=== PATIENT | female | born 1960 | race Caucasian/White ===

== ENCOUNTER 2021-07-10 01:41 | Emergency (ER) | payer OTHER, MEDICAID, SELFPAY ==
[2021-07-10 01:58] VITALS: BP 182/111; PULSE 78; RESP 20; TEMP 36.3; O2SAT 98; BMI 39.9
--- NOTE | 2021-07-10 02:06 | CTR_ITS ---
PROCEDURE INFORMATION: Exam: CT Abdomen And Pelvis With Contrast Exam date and time: 07/10/2021 3:40 AM Age: 61 years old Clinical indication: Abdominal pain; Localized; Right lower quadrant (rlq); Additional info: Abd pain TECHNIQUE: Imaging protocol: Computed tomography of the abdomen and pelvis with contrast. Radiation optimization: All CT scans at this facility use at least one of these dose optimization techniques: automated exposure control; mA and/or kV adjustment per patient size (includes targeted exams where dose is matched to clinical indication); or iterative reconstruction. Contrast material: OMNI 300; Contrast volume: 95 ml; Contrast route: INTRAVENOUS (IV); COMPARISON: No relevant prior studies available. RADIATION DOSE METRICS: Total DLP (mGy-cm): 1822.12 FINDINGS: Lungs: The visualized lung bases demonstrate no focal airspace opacification or pleural effusion. Heart: The visualized heart is within normal limits for size. There is no evidence of pericardial abnormality. Diaphragm: Large hiatal hernia. Liver: The liver is normal in size and contour. Gallbladder and bile ducts: The gallbladder is distended with normal wall thickness and does not demonstrate calcified gallstones. No intra- or extra-hepatic biliary ductal dilatation. Pancreas: The pancreas appears normal. Spleen: The spleen appears normal. Adrenal glands: The adrenals appear normal. Kidneys and ureters: Nonobstructing left-sided renal nephrolithiasis the largest of which measures up to approximately 4 mm. Severe right-sided hydronephrosis. Mild perinephric fat stranding. Severe dilatation of the right renal sinus. Abrupt tapering to normal ureteral diameter at the right ureteropelvic junction. No definitive stone identified at the right ureteropelvic junction. The remainder of the distal right ureter is not well visualized. Stomach and bowel: The stomach is appropriately distended and without wall abnormalities. The small bowel loops are not abnormally dilated. Colonic diverticulosis without signs of acute diverticulitis. Appendix: The appendix appears normal. Intraperitoneal space: No ascites or significant fluid collection. Vasculature: The aorta is nonaneurysmal. The IVC appears normal. Lymph nodes: There are no enlarged lymph nodes. Urinary bladder: The bladder is distended and demonstrates no focal contour abnormality. Reproductive: The uterus appears normal. Bones/joints: Right renal atrophy and cortical thinning noted. Fluid density cyst along the superior pole of the right kidney. Soft tissues: Unremarkable. CT/CT abdomen pelvis w con* [id number] IMPRESSION: 1. Severe right-sided hydronephrosis with abrupt tapering to normal ureteral diameter at the right ureteropelvic junction. No definitive stones identified. Renal cortical atrophy and thinning with mild perinephric fat stranding. Recommend follow-up urological evaluation. 2. Nonobstructing left-sided nephrolithiasis. 3. Large hiatal hernia. 4. Colonic diverticulosis without signs of acute diverticulitis.
--- NOTE | 2021-07-10 02:07 | W.ED.ABDPA2 ---
HPI - Abdominal Pain General: Chief Complaint: Abdominal Pain Stated Complaint: abd pain Time Seen by Provider: 07/10/21 01:46 Source: patient Mode of arrival: ambulatory Limitations: no limitations History of Present Illness: 61-year-old female states she been having right lower quadrant abdominal pain and flank pain over the last day. States pain is very sharp in nature worse with movement and palpation. She states she has had a kidney stone in the past but this does not feel quite similar no abdominal surgeries in the past she has had nausea vomiting denies any fevers. Denies any radiation of her pain Associated Symptoms: Reports nausea and vomiting; Denies chills, dysuria and fever(s) Review of Systems Const: Denies: fever(s), chills, body aches or change in appetite Eyes: Denies: blurry vision or eye discomfort ENMT: Denies: throat pain or dental pain Card: Denies: chest pain Resp: Denies: dyspnea GI: Reports: abdominal pain, nausea and vomiting : Denies: dysuria Musc: Denies: neck pain or back pain Skin/Breast: Denies: rash Neuro: Denies: headache(s) Psych: Denies: depression Carlos/Lymph: Denies: easy bruising All/Imm: Denies: urticaria PFSH ED PFSH: Medical History No pertinent past medical history Social History (Updated 07/10/21 @ 02:08 by Chuckie Weiss MD) Substance/Drug Use: never Physical Exam Const: COMMON NORMALS: no acute distress, patient oriented x3 and healthy appearing HENMT: COMMON NORMALS: normocephalic and atraumatic HEAD & SCALP: normocephalic and atraumatic Eye: COMMON NORMALS: Equal, round and reactive pupils present and EOMs intact bilaterally PUPIL: Yes Equal, round and reactive pupils present Neck/C-Spine: COMMON NORMALS: full ROM and supple Chest: COMMONS NORMALS: normal inspection of the chest and normal palpation of entire chest wall Resp: COMMON NORMALS: normal respiratory effort, No retractions, No use of accessory muscles and clear to auscultation bilaterally AUSCULTATION: clear to auscultation bilaterally Cardio: COMMON NORMALS: regular rate, regular rhythm and No murmurs present (Cardio) RATE: regular rate RHYTHM: regular rhythm GI: COMMON NORMALS: Normal to inspection, nondistended, normoactive bowel sounds present, Soft to palpation and no masses PALPATION: Yes Soft to palpation and Yes Tenderness to palpation present (GI) Details: RLQ Extremity: COMMON NORMALS: normal to inspection and full ROM Neuro: COMMON NORMALS: patient oriented x3, moves all extremities and no focal motor deficits Psych: COMMON NORMALS: mental status grossly normal, Normal thought process present and cooperative THOUGHT PROCESS: Normal thought process present Skin: COMMON NORMALS: no rashes or lesions noted and no wounds GENERAL SKIN EXAM: no rashes or lesions noted Course Vital Signs: Vital signs: Vital Signs Temperature 97.4 F L 07/10/21 01:58 Pulse Rate 83 07/10/21 02:33 Respiratory Rate 16 07/10/21 04:35 Blood Pressure 171/91 07/10/21 02:33 Pulse Oximetry 96 07/10/21 04:35 MDM - Abdominal Pain Medical Decision Making Patient presents here with abdominal pain she does have hydronephrosis of the right kidney no sign of acute kidney stone patient's kidney function here is normal does have a leukocytosis but no signs of acute surgical abdomen her pain is much improved exam at discharge is benign we will get her follow-up with urology she is to return if worsening she understands agrees to plan. Lab Data : 07/10/21 02:41 07/10/21 02:41 Labs/Radiology: Radiology Impressions Abdomen/Pelvis CT 07/10/21 02:06 IMPRESSION: 1. Severe right-sided hydronephrosis with abrupt tapering to normal ureteral diameter at the right ureteropelvic junction. No definitive stones identified. Renal cortical atrophy and thinning with mild perinephric fat stranding. Recommend follow-up urological evaluation. 2. Nonobstructing left-sided nephrolithiasis. 3. Large hiatal hernia. 4. Colonic diverticulosis without signs of acute diverticulitis. Laboratory Results WBC 17.5 10^3/uL (4.0-10.0) H 07/10/21 02:41 RBC 4.39 10^6/uL (4.1-5.3) 07/10/21 02:41 Hgb 8.0 g/dL (11.5-15.3) L 07/10/21 02:41 Hct 28.1 % (37.0-47.0) L 07/10/21 02:41 MCV 64.0 fl (81-99) L 07/10/21 02:41 MCH 18.2 pg (28.0-34.0) L 07/10/21 02:41 MCHC 28.5 g/dL (30.0-36.0) L 07/10/21 02:41 RDW 19.0 % (12.1-15.1) H 07/10/21 02:41 Plt Count 436 10^3/cmm (130-400) H 07/10/21 02:41 MPV 10.3 fL (7.4-10.4) 07/10/21 02:41 Neut % (Auto) 91.4 % 07/10/21 02:41 Lymph % (Auto) 4.1 % 07/10/21 02:41 [place] % (Auto) 3.3 % 07/10/21 02:41 Eos % (Auto) 0.1 % 07/10/21 02:41 Baso % (Auto) 0.6 % 07/10/21 02:41 Neut # (Auto) 16.00 10^3/uL (1.8-7.7) H 07/10/21 02:41 Lymph # (Auto) 0.7 10^3/uL (0.8-4.8) L 07/10/21 02:41 [place] # (Auto) 0.6 10^3/uL (0.2-0.9) 07/10/21 02:41 Eos # (Auto) 0.0 10^3/uL (0.0-0.8) 07/10/21 02:41 Baso # (Auto) 0.1 10^3/uL (0.0-0.1) 07/10/21 02:41 Nucleated RBC % (auto) 0 % 07/10/21 02:41 Nucleated RBCs # 0.0 /100WBC 07/10/21 02:41 Sodium 138 mmol/L (136-145) 07/10/21 02:41 Potassium 4.3 mmol/L (3.5-5.1) 07/10/21 02:41 Chloride 103 mmol/L (98-107) 07/10/21 02:41 Carbon Dioxide 21 mmol/L (22-29) L 07/10/21 02:41 Anion Gap 18.3 (5-19) 07/10/21 02:41 BUN 18 mg/dL (8-23) 07/10/21 02:41 Creatinine 1.0 mg/dL (0.5-0.9) H 07/10/21 02:41 GFR Calculation 56.6 mL/min (90-130) L 07/10/21 02:41 Glucose 164 mg/dL (65-115) H 07/10/21 02:41 Calculated Osmolality 292 mOsm/kg (285-295) 07/10/21 02:41 Calcium 9.9 mg/dL (8.5-10.5) 07/10/21 02:41 Total Bilirubin 0.3 mg/dL (0.15-1.2) 07/10/21 02:41 AST 15 U/L (0-32) 07/10/21 02:41 ALT 14 U/L (0-33) 07/10/21 02:41 Alkaline Phosphatase 133 IU/L (35-105) H 07/10/21 02:41 Total Protein 7.6 g/dL (6.6-8.7) 07/10/21 02:41 Albumin 4.6 g/dL (3.5-5.2) 07/10/21 02:41 Globulin 3.0 g/dL (1.3-4.6) 07/10/21 02:41 Lipase 25 U/L (13-60) 07/10/21 02:41 Urine Color Yellow (Yellow) 07/10/21 04:15 Urine Appearance Clear (CLEAR) 07/10/21 04:15 Urine pH 5 (5-7) 07/10/21 04:15 Ur Specific [place] 1.010 (1.005-1.030) 07/10/21 04:15 Urine Protein Neg (Negative) 07/10/21 04:15 Urine Glucose (UA) Norm (Normal) 07/10/21 04:15 Urine Ketones Negative (Negative) 07/10/21 04:15 Urine Blood Neg (Negative) 07/10/21 04:15 Urine Nitrate Negative (Negative) 07/10/21 04:15 Urine Bilirubin Neg (Negative) 07/10/21 04:15 Urine Urobilinogen Norm mg/dL (Negative) 07/10/21 04:15 Ur Leukocyte Esterase Negative (Negative) 07/10/21 04:15 Discharge Plan Discharge Patient Disposition: Home Clinical Impression: Abdominal pain Qualifiers: Abdominal location: generalized Qualified Code(s): R10.84 - Generalized abdominal pain Hydronephrosis Qualifiers: Hydronephrosis type: unspecified Qualified Code(s): N13.30 - Unspecified hydronephrosis Prescriptions: New hydrocodone-acetaminophen 5-325 mg tablet 1 tab PO Q6H PRN (Reason: pain) Qty: 14 0RF ondansetron 4 mg tablet,disintegrating 4 mg PO Q6H PRN (Reason: nausea and vomiting) Qty: 14 0RF Discharge Orders: Discharge ED (Routine); Ordered 07/10/21 Ordered By: Chuckie Weiss Referrals: Edward Perez MD [Physician] - 1-3 days Discharge Diet: Advance as tolerated Discharge Activity: Resume usual activity Patient Instructions: Abdominal Pain (ED), Opioid Safety Coding Level of Care Code ED [employer] Foreign Language Teacher for Chg Fwd Exam Comprehensive
[2021-07-10] MEDS: ondansetron 2 mg/ML SDV 2 mL 4 MG IVP (02:31)
[2021-07-10 02:32] VITALS: RESP 16; O2SAT 95
[2021-07-10] MEDS: morphine 4 mg/mL SDV 1 mL IVP (02:32)
[2021-07-10 02:33] VITALS: BP 171/91; PULSE 83; RESP 16; O2SAT 96
[2021-07-10 02:53] LABS: Basophils # 0.1 10^3/uL (0.0-0.1); Basophils % 0.6 %; Eosinophils % 0.1 %; Hematocrit 28.1 % (37.0-47.0); Lymphocytes # 0.7 10^3/uL (0.8-4.8); Lymphocytes % 4.1 %; Mean Corpuscular HGB Conc 28.5 g/dL (30.0-36.0); Mean Corpuscular Hemoglobin 18.2 pg (28.0-34.0); Mean Platelet Volume 10.3 fL (7.4-10.4); Monocytes # 0.6 10^3/uL (0.2-0.9); Monocytes % 3.3 %; Neutrophils % 91.4 %; Nucleated Red Blood Cells % 0 %; Platelet Count 436 10^3/cmm (130-400); Red Blood Count 4.39 10^6/uL (4.1-5.3); White Blood Count 17.5 10^3/uL (4.0-10.0)
[2021-07-10 03:17] LABS: Alanine Aminotransferase 14 U/L (0-33); Albumin Level 4.6 g/dL (3.5-5.2); Alkaline Phosphatase 133 IU/L (35-105); Anion Gap 18.3 (5-19); Aspartate Amino Transferase 15 U/L (0-32); Blood Urea Nitrogen 18 mg/dL (8-23); Calcium 9.9 mg/dL (8.5-10.5); Carbon Dioxide 21 mmol/L (22-29); Chloride 103 mmol/L (98-107); Glomerular Filtration Rate 56.6 mL/min (90-130); Glucose 164 mg/dL (65-115); Lipase 25 U/L (13-60); Osmolality Calculated 292 mOsm/kg (285-295); Potassium 4.3 mmol/L (3.5-5.1); Sodium 138 mmol/L (136-145); Total Bilirubin 0.3 mg/dL (0.15-1.2); Total Protein 7.6 g/dL (6.6-8.7)
[2021-07-10] MEDS: iohexol 300 mg/mL 100 mL Btl IV (03:41)
[2021-07-10 04:35] VITALS: RESP 16; O2SAT 96
[2021-07-10] MEDS: HYDROmorphone 1 mg/mL INJ 1 mL IVP (04:35)
[2021-07-10 04:58] LABS: Add Urine Microscopic? NO; Bilirubin Urine Neg (Negative); Blood Urine Neg (Negative); Glucose Urine UA Norm (Normal); Ketones Urine Negative (Negative); Leukocyte Esterase Urine Negative (Negative); Nitrate Urine Negative (Negative); Protein Urine Neg (Negative); Urine Appearance Clear (CLEAR); Urine Color Yellow (Yellow); Urobilinogen Urine Norm (Negative); pH Urine 5 (5-7)
[2021-07-10 04:59] LABS: Charge for UA Resulting for Rev
--- NOTE | 2021-07-10 15:07 | DCPLANNER ---
Addendum entered by Heather Wu 07/27/21 18:16: Patient had a follow up appointment scheduled for 07.25.21 with urology - patient did attend appointment. Addendum entered by Heather Wu 07/12/21 18:56: Patient has a follow up appointment scheduled for Sunday, July 25, 2021 at 10:[address] Perez. Clinic will call patient with appointment information. Original Note: manager quality systems had message to schedule a follow up appointment for patient with urology. manager quality systems sent patients information to the front office staff at urology. Patients information will be printed and reviewed. Clinic will call patient with appointment information.
== END 2021-07-10 05:26 | disposition home or self-care (01) ==
PROVIDERS: Emergency Provider Emergency Medicine
DX: R10.84 Generalized abdominal pain (principal); N13.30 Unspecified hydronephrosis
CPT/HCPCS: 74177; 80053; 81003; 83690; 85025; 96374; 96375; 99284; J1170; J2270; J2405; Q9967

== ENCOUNTER 2021-07-10 18:19 | Inpatient (IN) | payer OTHER, MEDICAID, SELFPAY ==
[2021-07-10] VITALS (7 sets, daily range): BP systolic 124–170; BP diastolic 87–127; PULSE 91–119; RESP 16–17; TEMP 37.6; O2SAT 94–98
--- NOTE | 2021-07-10 19:26 | CTR_ITS ---
PROCEDURE INFORMATION: Exam: CT Abdomen And Pelvis Without Contrast Exam date and time: 07/10/2021 9:39 PM Age: 61 years old Clinical indication: Localized; Patient HX: Left side abdominal pain. PT had CT for same 18 hours ago, says now she has a fever also; Additional info: Abd pain TECHNIQUE: Imaging protocol: Computed tomography of the abdomen and pelvis without contrast. Radiation optimization: All CT scans at this facility use at least one of these dose optimization techniques: automated exposure control; mA and/or kV adjustment per patient size (includes targeted exams where dose is matched to clinical indication); or iterative reconstruction. COMPARISON: CT abdomen pelvis w con* [id number] 07/10/2021 3:40 AM RADIATION DOSE METRICS: Total DLP (mGy-cm): 1788.18 FINDINGS: Diaphragm: Moderate hiatal hernia. Liver: Normal. No mass. Gallbladder and bile ducts: Vicarious secretion of contrast in the gallbladder. Pancreas: Normal. No ductal dilation. Spleen: Normal. No splenomegaly. Adrenal glands: Normal. No mass. Kidneys and ureters: Severe right hydronephrosis with abrupt tapering of the ureter in the region of the ureteropelvic junction suggestive of an underlying ureteral stricture. Some retained contrast is seen in the right kidney parenchyma. Additionally right perinephric edema is present perhaps reflecting associated pyelonephritis. Several left kidney nonobstructive calyceal stones. Stomach and bowel: Diverticulosis without diverticulitis. Appendix: No evidence of appendicitis. Intraperitoneal space: Unremarkable. No free air. No significant fluid collection. Vasculature: Unremarkable. No abdominal aortic aneurysm. Lymph nodes: Unremarkable. No enlarged lymph nodes. Urinary bladder: Contrast seen in the urinary bladder. Reproductive: Unremarkable as visualized. Bones/joints: Unremarkable. No acute fracture. Soft tissues: Unremarkable. CT/CT abdomen pelvis wo con [id number] IMPRESSION: 1. Severe right hydronephrosis with abrupt tapering of the ureter in the region of the ureteropelvic junction suggestive of an underlying ureteral stricture. Some retained contrast is seen in the right kidney parenchyma. Additionally right perinephric edema is present perhaps reflecting associated pyelonephritis. 2. Several left kidney nonobstructive calyceal stones. 3. Diverticulosis without diverticulitis. 4. Contrast seen in the urinary bladder. 5. Moderate hiatal hernia. 6. Vicarious secretion of contrast in the gallbladder.
--- NOTE | 2021-07-10 21:43 | ED_ITS ---
HPI - Abdominal Pain General: Chief Complaint: Abdominal Pain Stated Complaint: left side pain Time Seen by Provider: 07/10/21 21:28 Source: patient Mode of arrival: ambulatory Limitations: no limitations History of Present Illness: 61-year-old female who has been having right lower quadrant abdominal pain over the last 2 to 3 days she was seen here yesterday had some hydronephrosis prescribed pain medicine nausea medicine states that she has been having vomiting today unable to tolerate any of her pain meds and has had worsening pain along with low-grade fevers denies any diarrhea states her pain is currently a 8 out of 10. Associated Symptoms: Reports vomiting; Denies chills, dysuria and fever(s) Review of Systems Const: Denies: fever(s), chills, body aches or change in appetite Eyes: Denies: blurry vision or eye discomfort ENMT: Denies: throat pain or dental pain Card: Denies: chest pain Resp: Denies: dyspnea GI: Reports: abdominal pain and vomiting : Denies: dysuria Musc: Denies: neck pain or back pain Skin/Breast: Denies: rash Neuro: Denies: headache(s) Psych: Denies: depression Carlos/Lymph: Denies: easy bruising All/Imm: Denies: urticaria PFSH ED PFSH: Medical History No pertinent past medical history Social History Substance/Drug Use: never Physical Exam Const: COMMON NORMALS: patient oriented x3 and healthy appearing HENMT: COMMON NORMALS: normocephalic and atraumatic HEAD & SCALP: normocephalic and atraumatic Eye: COMMON NORMALS: Equal, round and reactive pupils present and EOMs intact bilaterally PUPIL: Yes Equal, round and reactive pupils present Neck/C-Spine: COMMON NORMALS: full ROM and supple Chest: COMMONS NORMALS: normal inspection of the chest and normal palpation of entire chest wall Resp: COMMON NORMALS: normal respiratory effort, No retractions, No use of accessory muscles and clear to auscultation bilaterally AUSCULTATION: clear to auscultation bilaterally Cardio: COMMON NORMALS: regular rate, regular rhythm and No murmurs present (Cardio) RATE: regular rate RHYTHM: regular rhythm GI: COMMON NORMALS: Normal to inspection, nondistended, normoactive bowel sounds present, Soft to palpation and no masses PALPATION: Yes Soft to palpation OTHER: diffuse tenderness Extremity: COMMON NORMALS: normal to inspection and full ROM Neuro: COMMON NORMALS: patient oriented x3, moves all extremities and no focal motor deficits Psych: COMMON NORMALS: mental status grossly normal, Normal thought process present and cooperative THOUGHT PROCESS: Normal thought process present Skin: COMMON NORMALS: no rashes or lesions noted and no wounds GENERAL SKIN EXAM: no rashes or lesions noted Course Vital Signs: Vital signs: Vital Signs Temperature 99.7 F H 07/10/21 18:51 Pulse Rate 94 07/11/21 00:15 Respiratory Rate 17 07/11/21 00:15 Blood Pressure 137/92 07/11/21 00:15 Pulse Oximetry 98 07/11/21 00:15 MDM - Abdominal Pain Medical Decision Making Patient presents here with worsening flank pain her white count is elevated she has a fever now CT and urine today shows possible pyelonephritis her urine was normal yesterday she does have bacteria in her urine now and nitrite positive has a possible stricture in her ureter spoke to urology will admit to the hospitalist with urology consult patient given IV antibiotics here. Patient's not septic her lactate levels normal blood pressures been normal Lab Data : 07/10/21 22:07 07/10/21 22:07 Labs/Radiology: Radiology Impressions Abdomen/Pelvis CT 07/10/21 19:26 IMPRESSION: 1. Severe right hydronephrosis with abrupt tapering of the ureter in the region of the ureteropelvic junction suggestive of an underlying ureteral stricture. Some retained contrast is seen in the right kidney parenchyma. Additionally right perinephric edema is present perhaps reflecting associated pyelonephritis. 2. Several left kidney nonobstructive calyceal stones. 3. Diverticulosis without diverticulitis. 4. Contrast seen in the urinary bladder. 5. Moderate hiatal hernia. 6. Vicarious secretion of contrast in the gallbladder. Laboratory Results WBC 21.1 10^3/uL (4.0-10.0) H 07/10/21 22:07 RBC 4.59 10^6/uL (4.1-5.3) 07/10/21 22:07 Hgb 8.4 g/dL (11.5-15.3) L 07/10/21 22:07 Hct 29.3 % (37.0-47.0) L 07/10/21: MCV 63.8 fl (81-99) L 07/10/21: MCH 18.3 pg (28.0-34.0) L 07/10/21: MCHC 28.7 g/dL (30.0-36.0) L 07/10/21: RDW 19.1 % (12.1-15.1) H 07/10/21 22: Plt Count 448 10^3/cmm (130-400) H 07/10/21: MPV 9.8 fL (7.4-10.4) 07/10/21: Neut % (Auto) 87.4 % 07/10/21: Lymph % (Auto) 4.0 % 07/10/21: [place] % (Auto) 7.5 % 07/10/21: Eos % (Auto) 0.0 % 07/10/21: Baso % (Auto) 0.4 % 07/10/21: Neut # (Auto) 18.47 10^3/uL (1.8-7.7) H 07/10/21: Lymph # (Auto) 0.8 10^3/uL (0.8-4.8) 07/10/21: [place] # (Auto) 1.6 10^3/uL (0.2-0.9) H 07/10/21: Eos # (Auto) 0.0 10^3/uL (0.0-0.8) 07/10/21: Baso # (Auto) 0.1 10^3/uL (0.0-0.1) 07/10/21: Nucleated RBC % (auto) 0 % 07/10/21: Nucleated RBCs # 0.0 /100WBC 07/10/21 22: Sodium 132 mmol/L (136-145) L 07/10/21: Potassium 4.0 mmol/L (3.5-5.1) 07/10/21: Chloride 97 mmol/L (98-107) L 05/10/22 22:07 Carbon Dioxide 23 mmol/L (22-29) 07/10/21 22:07 Anion Gap 16.0 (5-19) 07/10/21 22:07 BUN 11 mg/dL (8-23) 07/10/21 22:07 Creatinine 0.9 mg/dL (0.5-0.9) 07/10/21 22:07 GFR Calculation 63.9 mL/min (90-130) L 07/10/21 22:07 Glucose 143 mg/dL (65-115) H 07/10/21 22:07 Calculated Osmolality 276 mOsm/kg (285-295) L 07/10/21 22:07 Lactate 1.8 mmol/L (0.5-2.2) 07/10/21 22: Calcium 9.5 mg/dL (8.5-10.5) 07/10/21 22: Total Bilirubin 0.5 mg/dL (0.15-1.2) 07/10/21 22:07 AST 13 U/L (0-32) 07/10/21 22: ALT 12 U/L (0-33) 07/10/21 22:07 Alkaline Phosphatase 134 IU/L (35-105) H 07/10/21 22:07 Total Protein 7.9 g/dL (6.6-8.7) 07/10/21 22: Albumin 4.7 g/dL (3.5-5.2) 07/10/21 22: Globulin 3.2 g/dL (1.3-4.6) 07/10/21 22: Lipase 28 U/L (13-60) 07/10/21 22: Urine Color Yellow (Yellow) 07/10/21:53 Urine Appearance Sl hazy (CLEAR) 07/10/21 22:53 Urine pH 5 (5-7) 07/10/21:53 Ur Specific [place] 1.020 (1.005-1.030) 07/10/21:53 Urine Protein Neg (Negative) 07/10/21:53 Urine Glucose (UA) Norm (Normal) 07/10/21 22:53 Urine Ketones Negative (Negative) 07/10/21:53 Urine Blood 2+ (Negative) H 07/10/21:53 Urine Nitrate Positive (Negative) H 07/10/21 22:53 Urine Bilirubin Neg (Negative) 07/10/21 22:53 Urine Urobilinogen Norm mg/dL (Negative) 07/10/21 22:53 Ur Leukocyte Esterase Negative (Negative) 07/10/21 22:53 Urine RBC 5-10 /hpf (0-2) H 07/10/21 22:53 Urine WBC 15-25 /hpf (0-5) H 07/10/21 22:53 Ur Squamous Epith Cells 15-25 /hpf (0-5) H 07/10/21 22:53 Amorphous Sediment Not Reportable 07/10/21 22:53 Urine Bacteria 3+ /hpf (NONE) H 07/10/21 22:53 Critical Care Time Critical Care Time: Critical Care Time: Yes Total Critical Care Time: 40 Attestation: The high probability of a clinically significant, sudden or life threatening deterioration of the patient's gu system(s) required my full and direct attention, intervention and personal management. The critical care time is as shown. This time is in addition to time spent performing any reported procedures but includes the following: [x] Data and vital sign review and interpretation [x] Patient assessment, examination and intervention [x] Documentation [x] Medication orders and management Discharge Plan Discharge Patient Disposition: Admitted As Inpatient Admit Provider: Oliver Morrison Clinical Impression: Pyelonephritis, Ureter, stricture Condition: Stable Coding Level of Care Code ED System Integration Engineer for Chg Fwd Exam Comprehensive
[2021-07-10 22:12] LABS: Basophils # 0.1 10^3/uL (0.0-0.1); Basophils % 0.4 %; Hematocrit 29.3 % (37.0-47.0); Hemoglobin 8.4 g/dL (11.5-15.3); Lymphocytes # 0.8 10^3/uL (0.8-4.8); Mean Corpuscular HGB Conc 28.7 g/dL (30.0-36.0); Mean Corpuscular Hemoglobin 18.3 pg (28.0-34.0); Mean Corpuscular Volume 63.8 fl (81-99); Mean Platelet Volume 9.8 fL (7.4-10.4); Monocytes # 1.6 10^3/uL (0.2-0.9); Monocytes % 7.5 %; Neutrophils # 18.47 10^3/uL (1.8-7.7); Neutrophils % 87.4 %; Nucleated Red Blood Cells % 0 %; Platelet Count 448 10^3/cmm (130-400); Red Blood Count 4.59 10^6/uL (4.1-5.3); Red Cell Distribution Width 19.1 % (12.1-15.1); White Blood Count 21.1 10^3/uL (4.0-10.0)
[2021-07-10] MEDS: ondansetron 2 mg/ML SDV 2 mL 4 MG IVP (22:12)
[2021-07-10] MEDS: morphine 4 mg/mL SDV 1 mL IVP (22:12)
[2021-07-10] MEDS: sodium chloride 0.9% 1,000 ML 999 ML IV (22:12)
[2021-07-10 22:31] LABS: Lactate (Lactic Acid level) 1.8 mmol/L (0.5-2.2)
[2021-07-10 22:32] LABS: Alanine Aminotransferase 12 U/L (0-33); Albumin Level 4.7 g/dL (3.5-5.2); Alkaline Phosphatase 134 IU/L (35-105); Aspartate Amino Transferase 13 U/L (0-32); Blood Urea Nitrogen 11 mg/dL (8-23); Calcium 9.5 mg/dL (8.5-10.5); Carbon Dioxide 23 mmol/L (22-29); Chloride 97 mmol/L (98-107); Globulin 3.2 g/dL (1.3-4.6); Glomerular Filtration Rate 63.9 mL/min (90-130); Glucose 143 mg/dL (65-115); Lipase 28 U/L (13-60); Osmolality Calculated 276 mOsm/kg (285-295); Sodium 132 mmol/L (136-145); Total Bilirubin 0.5 mg/dL (0.15-1.2); Total Protein 7.9 g/dL (6.6-8.7)
[2021-07-10] MEDS: piperacillin-tazobactam 3.375 GM in sodium chloride 0.9% (plus) 100 ML IV (22:46)
[2021-07-10 23:45] LABS: Urine Appearance SL Hazy (CLEAR); Urine Color Yellow (Yellow)
[2021-07-10 23:46] LABS: Add Urine Microscopic? YES; Bilirubin Urine Neg (Negative); Blood Urine 2+ (Negative); Glucose Urine UA Norm (Normal); Ketones Urine Negative (Negative); Leukocyte Esterase Urine Negative (Negative); Nitrate Urine Positive (Negative); Protein Urine Neg (Negative); Urobilinogen Urine Norm (Negative); pH Urine 5 (5-7)
[2021-07-10 23:47] LABS: Add Urine Culture? No; Bacteria Urine 3+ /hpf; Squamous Epithelial Cell Urine 15-25 /hpf (0-5); WBC Urine 15-25 /hpf (0-5)
[2021-07-11] VITALS (25 sets, daily range): BP systolic 114–176; BP diastolic 68–92; PULSE 76–109; RESP 16–31; TEMP 36.7–37.3; O2SAT 90–100; BMI 43.2
--- NOTE | 2021-07-11 | SCC_ITS ---
Procedure done: 1. Cystoscopy with right retrograde ureteropyelogram 2. Right ureteral stent placement (7 [place] by 26 cm double-pigtail stent without string) 20.3 seconds of fluoroscopic guidance, for a cumulative dose of 7.60 mGy, was provided to Dr. Perez by the radiology department. C-arm images of the abdomen were saved for the patient's permanent record. [facility]
--- NOTE | 2021-07-11 00:18 | PM.HP ---
Providers/Chief Complaint Chief Complaint: left side pain History of Present Illness The patient is a 61-year-old female who presented to [place] of right lower quadrant pain which started proximally 48 hours prior to hospitalization. She states it was of sudden onset in the pain does not radiate from that location. Since the time of onset the pain has been constant and she describes as a sharpness. As worst is rated 10 out of 10 and currently rates 9 out of 10. She states that she attempted to take hydrocodone at home however she vomited this. She denies hematuria. She denies frequent NSAID use. She states that her last bowel movement was possibly 12 hours prior to hospitalization. She denies diarrhea, melena, and hematochezia. She admits to onset of fever, rigors, nausea, vomiting. She presents for further evaluation Review of Systems General: Reports: 10 or more systems reviewed and unremarkable except in HPI and below Medications/Allergies Home Medications Medication Instructions Recorded Confirmed Last Taken Type hydrocodone 5 mg-acetaminophen 325 1 tab PO Q6H PRN #14 tab 07/10/21 Unknown Rx mg tablet ondansetron 4 mg disintegrating 4 mg PO Q6H PRN #14 tab 07/10/21 Unknown Rx tablet Allergies Allergy/AdvReac Type Severity Reaction Status Date / Time Sulfa (Sulfonamide Allergy ALGY-Hives Verified 07/10/21 18:54 Antibiotics) PFSH Acute PFSH: Medical History No pertinent past medical history Social History Substance/Drug Use: never Vitals/I&O/Wt Last Vital Signs Temp 99.7 F H 07/10/21 18:51 Pulse 97 07/10/21 23:30 Resp 16 07/10/21 23:30 BP 124/97 07/10/21 23:30 Pulse Ox 95 07/10/21 23:30 Weight last 48 hrs Weight 108.862 kg Physical Exam Narrative: General: -Alert -No acute distress -No dyspnea -No tachypnea Head: -Atraumatic -Normocephalic Eyes: -Pupils equally round and reactive to light and accommodation -Extraocular muscles intact Neurological: -Cranial nerves II-XII intact Neck: -No jugular venous distention -No thyromegaly -No cervical lymphadenopathy Heart: -Regular rate -Regular rhythm -No murmurs -No gallops -No rubs Lungs: -No wheeze -No rhonchi -No rales ? Abdomen: -Normal bowel sounds in all four quadrants -No rebound -No guarding -No tenderness Extremities: -2/4 pulse in all four extremities -No clubbing -No cyanosis -No edema -No calf tenderness present bilaterally -Negative Hayden?s sign bilaterally Musculoskeletal: -5/5 bilateral upper extremity strength -5/5 bilateral lower extremity strength -Sensorium of bilateral upper extremities are equal and intact -Sensorium of bilateral lower extremities are equal and intact ? Additional Details / Additional Findings / Exceptions / Miscellaneous: Data : 07/10/21 22:07 07/10/21 22:07 Micro: Microbiology 07/10/21 22:30 Blood Culture - Preliminary Blood SPECIMEN COLLECTED 07/10/21 22:15 Blood Culture - Preliminary Blood SPECIMEN COLLECTED A&P Assessment and plan (1) Abdominal pain: Status: Acute Qualifiers: Abdominal location: generalized Qualified Code(s): R10.84 - Generalized abdominal pain Plan Pyelonephritis. Blood culture ?2 drawn the emergency department pending.. Zosyn 3.375 g IV every 6 hours History of migraine Hyponatremia. We will monitor sodium level intermittently. Status post evaluation by urology, we may consider initiation of IV fluids Severe right hydronephrosis which is believed to be secondary to ureteral stricture. Emergency department physician has notified me that the urologist has been notified and will evaluate the patient on July 11, 2021 Diverticulosis Nephrolithiasis. Emergency department physician has notified me that the urologist has been notified and will evaluate the patient on July 11, 2021 Thrombocytosis. We will monitor platelet count intermittently with CBC Macrocytic anemia. We will monitor hemoglobin level intermittently. Check serum ferritin, iron panel, fecal occult blood Obesity. The patient becomes regarding lifestyle modification DVT Proflex is. 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
[2021-07-11] MEDS: morphine 4 mg/mL SDV 1 mL IVP (00:56)
[2021-07-11 01:23] LABS: Ferritin 13 ng/mL (15-150); Iron 10 ug/dL (37-145); Percent Saturation 2.2 % (20-50); Total Iron Binding Capacity 441 mcg/dl; Unsaturated Iron Binding 431 ug/dL (112-347)
[2021-07-11] MEDS: morphine 4 mg/mL SDV 1 mL 2 MG IVP (04:34)
[2021-07-11 05:21] LABS: Basophils # 0.1 10^3/uL (0.0-0.1); Basophils % 0.3 %; Eosinophils # 0.1 10^3/uL (0.0-0.8); Eosinophils % 0.3 %; Hemoglobin 7.3 g/dL (11.5-15.3); Lymphocytes # 1.2 10^3/uL (0.8-4.8); Lymphocytes % 6.5 %; Mean Corpuscular HGB Conc 28.1 g/dL (30.0-36.0); Monocytes # 1.7 10^3/uL (0.2-0.9); Monocytes % 9.3 %; Neutrophils # 15.26 10^3/uL (1.8-7.7); Neutrophils % 82.8 %; Nucleated Red Blood Cells % 0 %; Platelet Count 409 10^3/cmm (130-400); Red Blood Count 4.06 10^6/uL (4.1-5.3); Red Cell Distribution Width 19.1 % (12.1-15.1); White Blood Count 18.4 10^3/uL (4.0-10.0)
[2021-07-11 05:56] LABS: Blood Urea Nitrogen 11 mg/dL (8-23); Calcium 9.1 mg/dL (8.5-10.5); Carbon Dioxide 23 mmol/L (22-29); Chloride 101 mmol/L (98-107); Glomerular Filtration Rate 56.6 mL/min (90-130); Glucose 137 mg/dL (65-115); Osmolality Calculated 282 mOsm/kg (285-295); Sodium 135 mmol/L (136-145)
[2021-07-11] MEDS: piperacillin-tazobactam 3.375 GM in dextrose 5% (plus) 50 ML IV (06:13)
--- NOTE | 2021-07-11 06:23 | PM.CONSULT ---
Providers/Reason For Consult Consulting Physician/Specialty*: Urology/Perez Reason for Consult*: Right UPJ obstruction with UTI Requesting Physician: Dr. Weiss Attending Physician: Oliver Morrison DO Primary Care Provider: Does not have 1 yet History of Present Illness History of Present Illness Rhonda Rai is a 61 year old female who just moved to the area. Presented to the ER couple days ago with abdominal pain and was found to have on CT scan evidence of a right UPJ obstruction. No clear evidence of infection at that time. She was sent home with plans for urology consultation. She presented back to the emergency department last night with worsening pain and was now found to have a urinary tract infection. Symptoms included nausea vomiting. Her white count which was elevated 18 on her first visit was now 21,000. She was admitted for further evaluation and treatment. CT scan also showed evidence of chronic UPJ obstruction with significant ATROPHY of the right kidney parenchyma. On the CT scan done last night it showed persistence of contrast enhancement of parts of the parenchyma. I recommended an urgent stent placement to help reduce the risk of progression to sepsis. Have also reviewed with her the surgical options available for repair of UPJ obstruction. Procedure was discussed in detail. Benefits risk potential complications potential staging of the procedure based on access from a retrograde approach, potential need for antegrade access if retrograde on successful all thoroughly discussed with the patient. Focused on initially obtaining drainage so that the antibiotics can work more effectively and then on a delayed basis pursuing UPJ repair. She expressed good understanding. Has given informed consent to proceed Review of Systems Const: Reports: malaise; Denies: fever(s) or chills Eyes: Denies: change in vision or eye discharge ENMT: Denies: hoarseness Card: Denies: chest pain or palpitations Resp: Denies: dyspnea GI: Reports: abdominal pain, nausea and vomiting; Denies: hematochezia : Reports: flank pain; Denies: hematuria Musc: Denies: joint redness or joint warmth Skin/Breast: Denies: rash Neuro: Reports: headache(s); Denies: weakness in extremities Psych: Reports: anxiety; Denies: depression or memory loss Endo: Denies: flushing Carlos/Lymph: Denies: easy bruising, easy bleeding or enlarged lymph nodes All/Imm: Denies: acute wheezing Medications/Allergies Home Medications Medication Instructions Recorded Confirmed Last Taken Type hydrocodone 5 mg-acetaminophen 325 1 tab PO Q6H PRN #14 tab 07/10/21 07/11/21 07/10/21 Rx mg tablet ondansetron 4 mg disintegrating 4 mg PO Q6H PRN #14 tab 07/10/21 07/11/21 07/10/21 Rx tablet Vitamin D3 5,000 units PO DAILY 07/11/21 07/11/21 07/08/21 History albuterol sulfate 90 mcg/actuation 2 puff INHALATION QID PRN 07/11/21 07/11/21 Unknown History aerosol inhaler (Proventil HFA) amitriptyline 25 mg PO BEDTIME 07/11/21 07/11/21 07/07/21 History atorvastatin 10 mg tablet 10 mg PO DAILY 07/11/21 07/11/21 07/08/21 History budesonide-formoterol HFA 160 2 puff INHALATION Q12H 07/11/21 07/11/21 07/10/21 History mcg-4.5 mcg/actuation aerosol inhaler (Symbicort) erenumab-aooe 140 mg/mL See Rx Instructions .ROUTE .COMPLEX 07/11/21 07/11/21 06/30/20 History subcutaneous auto-injector (Aimovig Autoinjector) ferrous sulfate 325 mg PO DAILY 07/11/21 07/11/21 07/08/21 History fluoxetine 20 mg PO DAILY 07/11/21 07/11/21 07/08/21 History furosemide 40 mg PO DAILY 07/11/21 07/11/21 07/08/21 History gabapentin 400 mg capsule 400 mg PO TID 07/11/21 07/11/21 07/08/21 History hydroxyzine pamoate 25 mg capsule 25 mg PO TID PRN 07/11/21 07/11/21 07/08/21 History hyoscyamine sulfate 0.125 mg tablet 125 mg PO TID PRN 07/11/21 07/11/21 Unknown History indomethacin 50 mg capsule 50 mg PO TID PRN 07/11/21 07/11/21 Unknown History ipratropium 0.5 mg-albuterol 3 mg 3 ml INHALATION Q4H PRN 07/11/21 07/11/21 Unknown History (2.5 mg base)/3 mL nebulization soln lisinopril 20 mg PO DAILY 07/11/21 07/11/21 07/10/21 History omeprazole 40 mg PO DAILY 07/11/21 07/11/21 07/08/21 History pramipexole 0.125 mg tablet 0.125 mg PO BEDTIME 07/11/21 07/11/21 07/07/21 History propranolol 40 mg tablet 40 mg PO BID 07/11/21 07/11/21 07/08/21 History sumatriptan succinate 100 mg tablet 100 mg PO Q2H PRN 07/11/21 07/11/21 Unknown History tizanidine 4 mg tablet 4 mg PO BEDTIME 07/11/21 07/11/21 07/08/21 History Allergies Allergy/AdvReac Type Severity Reaction Status Date / Time Sulfa (Sulfonamide Allergy ALGY-Hives Verified 07/10/21 18:54 Antibiotics) Current Medications Generic Name Dose Route Start Last Admin Trade Name Freq PRN Reason Stop Dose Admin Piperacillin Sod/Tazobactam 50 mls @ 12.5 mls/hr 07/11/21 07:00 07/11/21 06:13 Sod 3.375 gm/ Dextrose IV 12.5 mls/hr Q8H WHITNEY Administration Morphine Sulfate 2 mg 07/11/21 01:17 07/11/21 04:34 Morphine 4 Mg/Ml Sdv 1 Ml IVP 2 mg Q4H PRN Administration SEVERE PAIN PFSH Acute PFSH: Medical History Anxiety COPD (chronic obstructive pulmonary disease) CPAP (continuous positive airway pressure) dependence Diverticulosis Gastroesophageal reflux Hyperlipidemia Hypertension Irritable bowel syndrome (IBS) Migraine Sleep apnea Ureteropelvic junction (UPJ) obstruction, right Surgical History History of colonoscopy History of thumb surgery History of tonsillectomy Family History (Updated 07/11/21 @ 06:46 by Edward Perez MD) Mother Lupus Other CAD (coronary artery disease) Denies family history of Anesthesia complication Bleeding disorder Social History (Updated 07/11/21 @ 06:47 by Edward Perez MD) Substance/Drug Use: never Marital status: Vitals/I&O/Wt Last Vital Signs Temp 98.8 F 07/11/21 04:00 Pulse 103 H 07/11/21 04:00 Resp 18 07/11/21 04:34 BP 133/80 07/11/21 04:00 Pulse Ox 90 07/11/21 04:00 07/10/21 07/10/21 07/11/21 14:59 22:59 06:59 Intake Total 1220 / 1220 Balance 1220 / 1220 Weight last 48 hrs Weight 259 lb 11.2 oz Weight 240 lb Physical Exam Const: COMMON NORMALS: no acute distress, alert and well nourished GENERAL APPEARANCE: well kempt and well developed ORIENTATION/CONSCIOUSNESS: not confused HENMT: COMMON NORMALS: normocephalic and atraumatic HEAD & SCALP: normocephalic and atraumatic Eye: COMMON NORMALS: conjunctivae normal and no scleral icterus CONJUNCTIVA: Yes conjunctivae normal Neck/C-Spine: COMMON NORMALS: full ROM Resp: COMMON NORMALS: normal respiratory effort EFFORT & INSPECTION: No labored and No Actively coughing Cardio: COMMON NORMALS: regular rate and regular rhythm RATE: regular rate RHYTHM: regular rhythm OTHER: Tachycardic GI: OTHER: Normoactive bowel sounds. Tender right upper quadrant : OTHER: Bladder nondistended, normal urethra urethral meatus. There is some anterior vaginal wall descent. No obvious vaginal lesions or discharge. No palpable mass Back/Pelvis: OTHER: Right CVA tenderness Extremity: COMMON NORMALS: no clubbing, cyanosis or edema Neuro: COMMON NORMALS: no focal motor deficits SENSORIUM/ORIENTATION: Yes alert Psych: COMMON NORMALS: mental status grossly normal APPEARANCE: Yes grossly normal and Yes well kempt ATTITUDE: Yes calm and Yes engaged Skin: COMMON NORMALS: no rashes or lesions noted and no jaundice GENERAL SKIN EXAM: no rashes or lesions noted Data : 07/11/21 05:00 07/11/21 05:00 Micro: Microbiology 07/10/21 22:30 Blood Culture - Preliminary Blood SPECIMEN COLLECTED 07/10/21 22:15 Blood Culture - Preliminary Blood SPECIMEN COLLECTED CT Abd/Pel: My impression: I personally reviewed both of her CT scans. Agree with findings on reports. Does show significant right renal atrophy secondary to chronic status of right UPJ obstruction A&P Assessment and plan (1) Ureteropelvic junction (UPJ) obstruction, right: Congenital. Complicated by current UTI Recommend stent placement urgently. Also reviewed the possibility of inability to bridge the UPJ obstruction with a retrograde approach which would necessitate interventional radiology placement of right percutaneous nephrostomy tube. Status: Acute (2) Pyelonephritis: Complicated by right UPJ obstruction Status: Acute (3) Hydronephrosis: Status: Acute Qualifiers: Hydronephrosis type: unspecified Qualified Code(s): N13.30 - Unspecified hydronephrosis (4) Abdominal pain: Status: Acute Qualifiers: Abdominal location: generalized Qualified Code(s): R10.84 - Generalized abdominal pain Plan 1. To the operating room for stent placement soon as time is available 2. Medical management via hospitalist service. Consult Attestations Medical Necessity Statement: Patient has UTI and obstruction. Requires drainage with ureteral stent. 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
--- NOTE | 2021-07-11 06:38 | SC_ITS ---
WS: [id number] [place] [facility] Urology REASON FOR EXAM: Right ureteral obstruction FINDINGS: Right ureteral stent placement. Pigtail is appropriately formed. No contrast to document urinary trac t position but presumably within the significantly dilated right extrarenal pelvis superior to high-g rade ureteral pelvic junction stenosis demonstrated on CT scan 07/15/2021. SC/[facility] [place] [facility] Urology IMPRESSION: Right ureteral stent placement as above.
--- NOTE | 2021-07-11 07:36 | ECG_ITS ---
[facility] Test Date: 2021-07-11 Pat Name: Rhonda Rai Department: Room: 251 Gender: Female Test Technician: : 1960 Requested By: Susu Stuart Order Number: [id number] Kyra MD: Brianna Castillo M.D. Measurements Intervals [place] Rate: 98 P: 18 [place]: 170 QRS: 0 QRSD: 93 T: 11 QT: 342 QTc: 438 Interpretive Statements SINUS RHYTHM No previous ECG available for comparison Electronically Signed On 07-11-2021 22:43:36 CDT by Brianna Castillo M.D. [id number]
--- NOTE | 2021-07-11 08:02 | PM.OP ---
Operative Report Date of procedure: July 11, 2021 Pre-op diagnosis: Right UPJ obstruction with UTI Post-op diagnosis: Right UPJ obstruction with UTI Procedure done: 1. Cystoscopy with right retrograde ureteropyelogram 2. Right ureteral stent placement (7 Icelandic by 26 cm double-pigtail stent without string) Implants: Right ureteral stent Specimens removed/disposition: None Pathology: None Surgeon: Chris Anesthesia: General Estimated blood loss: Minimal Urine output: Not measured Complications: None Findings: 1. Findings consistent with right UPJ obstruction. 2. Right ureteral stent placed without difficulty. 7 Icelandic by 26 cm double-pigtail without string 3. Grossly purulent urine drained through the stent. Pino catheter left indwelling to decompress her upper urinary tract. Brief History: Rhonda is a very pleasant 61-year-old white female who was admitted last night with evidence of right chronic UPJ obstruction with some renal atrophy and new onset of UTI. No evidence of sepsis at time of evaluation. Taken to the operating room urgently for cystoscopy and stent placement Procedure: After urgent evaluation examination and obtaining of informed consent she was taken to the operating suite on 07/11/2021 where general anesthesia was administered without difficulty after appropriate timeout was performed, SCDs confirmed to be functioning, preoperative antibiotics administered, beta-addy protocol confirmed. Prepped and draped in usual sterile fashion in dorsolithotomy position paying careful attention to avoiding pressure points. 21 Icelandic cystoscope with 30 degree lens was introduced into the urethral meatus and advanced into the bladder under videoscopy. Bladder was systematically examined. An 8 Icelandic cone-tip catheter was intubated into the left ureteral orifice for a left retrograde ureteropyelogram with very low pressure injection of the contrast to outline the distal and proximal ureter without enough pressure to have contrast transit the obstruction into the renal pelvis. Narrowing was confirmed at the area of the UPJ obstruction. Flexible tip guidewire was then advanced up the left ureter easily bypassing the obstructed area curling in the dilated renal pelvis. Immediately purulent drainage commenced A 7 Icelandic by 26 cm double-pigtail stent was advanced over the guidewire through the cystoscope into appropriate position as confirmed via fluoroscopy and cystoscopy. Stent was confirmed to be draining purulent material. Bladder was drained with a Pino catheter. Procedure was completed. She tolerated procedure well without complications and was awakened in the operating room and returned to the recovery room in stable condition. PLANS: 1. Return to the floor after recovery 2. Treat per usual protocol for pyelonephritis 3. We will maintain ureteral stent indwelling until final decision regarding definitive repair of the UPJ obstruction is made. 4. Would maintain Pino catheter for least 24 hours for decompression of the upper urinary tract and allow real-time drainage of the purulent material from the upper tract.
--- NOTE | 2021-07-11 08:08 | ANES.PREANE2 ---
Pre-Anesthetic Assessment Height/Weight: Height 1.65 m Weight 117.798 kg Temp Pulse Resp BP Pulse Ox 98.8 F 109 H 16 148/88 90 07/11/21 07:46 07/11/21 07:46 07/11/21 07:46 07/11/21 07:46 07/11/21 07:46 Operation Date: 07/11/21 08:25 Proposed Procedures p Cystoscopy(Not Applicable) - Edward Perez MD s Retrograde Pyelogram(Right) - Edward Perez MD s Ureteral Stent Placement(Right) - Edward Perez MD Familial anesthetic complications: None Was Beta Nancy taken within 24 hours: Yes Was Clonidine taken within 24 hours: N/A Social No alcohol and No tobacco Exam alert, oriented x 3, clear to auscultation bilaterally and regular rate & rhythm Airway Submandibular: within normal limits Cervical ROM: within normal limits Mallampati: Class I Dentition: false Pulmonary Asthma CV/HEM Hypertension UPJ obstruction with pyelo GI Gastroesophageal Reflux Disease Metabolic Hyperlipidemia and Morbid Obesity Neuropsych Headache Anesthetic Plan ASA status: 3 Anesthesia: General Medications/Allergies Home Medications Medication Instructions Recorded Confirmed Last Taken Type hydrocodone 5 mg-acetaminophen 325 1 tab PO Q6H PRN #14 tab 07/10/21 07/11/21 07/10/21 Rx mg tablet ondansetron 4 mg disintegrating 4 mg PO Q6H PRN #14 tab 07/10/21 07/11/21 07/10/21 Rx tablet Vitamin D3 5,000 units PO DAILY 07/11/21 07/11/21 07/08/21 History albuterol sulfate 90 mcg/actuation 2 puff INHALATION QID PRN 07/11/21 07/11/21 Unknown History aerosol inhaler (Proventil HFA) amitriptyline 25 mg PO BEDTIME 07/11/21 07/11/21 07/07/21 History atorvastatin 10 mg tablet 10 mg PO DAILY 07/11/21 07/11/21 07/08/21 History budesonide-formoterol HFA 160 2 puff INHALATION Q12H 07/11/21 07/11/21 07/10/21 History mcg-4.5 mcg/actuation aerosol inhaler (Symbicort) erenumab-aooe 140 mg/mL See Rx Instructions .ROUTE .COMPLEX 07/11/21 07/11/21 06/30/20 History subcutaneous auto-injector (Aimovig Autoinjector) ferrous sulfate 325 mg PO DAILY 07/11/21 07/11/21 07/08/21 History fluoxetine 20 mg PO DAILY 07/11/21 07/11/21 07/08/21 History furosemide 40 mg PO DAILY 07/11/21 07/11/21 07/08/21 History gabapentin 400 mg capsule 400 mg PO TID 07/11/21 07/11/21 07/08/21 History hydroxyzine pamoate 25 mg capsule 25 mg PO TID PRN 07/11/21 07/11/21 07/08/21 History hyoscyamine sulfate 0.125 mg tablet 125 mg PO TID PRN 07/11/21 07/11/21 Unknown History indomethacin 50 mg capsule 50 mg PO TID PRN 07/11/21 07/11/21 Unknown History ipratropium 0.5 mg-albuterol 3 mg 3 ml INHALATION Q4H PRN 07/11/21 07/11/21 Unknown History (2.5 mg base)/3 mL nebulization soln lisinopril 20 mg PO DAILY 07/11/21 07/11/21 07/10/21 History omeprazole 40 mg PO DAILY 07/11/21 07/11/21 07/08/21 History pramipexole 0.125 mg tablet 0.125 mg PO BEDTIME 07/11/21 07/11/21 07/07/21 History propranolol 40 mg tablet 40 mg PO BID 07/11/21 07/11/21 07/08/21 History sumatriptan succinate 100 mg tablet 100 mg PO Q2H PRN 07/11/21 07/11/21 Unknown History tizanidine 4 mg tablet 4 mg PO BEDTIME 07/11/21 07/11/21 07/08/21 History Allergies Allergy/AdvReac Type Severity Reaction Status Date / Time Sulfa (Sulfonamide Allergy ALGY-Hives Verified 07/10/21 18:54 Antibiotics) Current Medications Generic Name Dose Route Start Last Admin Trade Name Freq PRN Reason Stop Dose Admin Piperacillin Sod/Tazobactam 50 mls @ 12.5 mls/hr 07/11/21 07:00 07/11/21 06:13 Sod 3.375 gm/ Dextrose IV 07/11/21 19:00 12.5 mls/hr Q8H WHITNEY Administration Morphine Sulfate 2 mg 07/11/21 01:17 07/11/21 04:34 Morphine 4 Mg/Ml Sdv 1 Ml IVP 2 mg Q4H PRN Administration SEVERE PAIN PFSH Anesthesia Medical History Anxiety COPD (chronic obstructive pulmonary disease) CPAP (continuous positive airway pressure) dependence Diverticulosis Gastroesophageal reflux Hyperlipidemia Hypertension Irritable bowel syndrome (IBS) Migraine Sleep apnea Ureteropelvic junction (UPJ) obstruction, right Surgical History History of colonoscopy History of thumb surgery History of tonsillectomy Family History (Updated 07/11/21 @ 06:46 by Edward Perez MD) Mother Lupus Other CAD (coronary artery disease) Denies family history of Anesthesia complication Bleeding disorder Social History (Updated 07/11/21 @ 06:47 by Edward Perez MD) Substance/Drug Use: never Marital status: Data Anesthesia : 07/11/21 05:00 07/11/21 05:00 Short CBC 07/10/21 07/11/21 Range/Units 22:07 05:00 WBC 21.1 H 18.4 H (4.0-10.0) 10^3/uL Hgb 8.4 L 7.3 L (11.5-15.3) g/dL Hct 29.3 L 26.0 L (37.0-47.0) % MCV 63.8 L 64.0 L (81-99) fl Plt Count 448 H 409 H (130-400) 10^3/cmm Neut % (Auto) 87.4 82.8 % Neut # (Auto) 18.47 H 15.26 H (1.8-7.7) 10^3/uL BMP 07/10/21 07/11/21 22:07 05:00 Sodium 132 L 135 L Potassium 4.0 4.0 Chloride 97 L 101 Carbon Dioxide 23 23 BUN 11 11 Creatinine 0.9 1.0 H Glucose 143 H 137 H Calcium 9.5 9.1 Liver Function 07/10/21 Range/Units 22:07 Total Bilirubin 0.5 (0.15-1.2) mg/dL AST 13 (0-32) U/L ALT 12 (0-33) U/L Alkaline Phosphatase 134 H (35-105) IU/L Albumin 4.7 (3.5-5.2) g/dL Urine 07/10/21 Range/Units 22:53 Urine Color Yellow (Yellow) Urine Appearance Sl hazy (CLEAR) Urine pH 5 (5-7) Ur Specific [place] 1.020 (1.005-1.030) Urine Protein Neg (Negative) Urine Glucose (UA) Norm (Normal) Urine Ketones Negative (Negative) Urine Nitrate Positive H (Negative) Urine Bilirubin Neg (Negative) Ur Leukocyte Esterase Negative (Negative) Urine RBC 5-10 H (0-2) /hpf Urine WBC 15-25 H (0-5) /hpf Microbiology 07/10/21 22:30 Blood Culture - Preliminary Blood SPECIMEN COLLECTED 07/10/21 22:15 Blood Culture - Preliminary Blood SPECIMEN COLLECTED Cardiac Studies: No Data to Display
[2021-07-11] MEDS: scopolamine 1.5 Patch 1 PATCH TRANSDERMA (08:13)
[2021-07-11] MEDS: sodium chloride 0.9% 1,000 ML 30 ML IV (08:15)
--- NOTE | 2021-07-11 08:59 | SUR.PHASEI ---
0852 PT TO PACU 5 PT DOES NOT AWAKE TO VOICE, ORAL AIRWAY IN PLACE, GOOD RESPIRATORY EFFORT NOTED, ABDOMEN SOFT , PT HAS HERRERA CATHETER IWTH CLEAR YELLOW URINE TO TUBING AND BAG, EVARISTO STRAP TO RT THIGH TO SECURE. IV TO RT FOREARM #20 IV WTIH NS 500ML UP AT KVO RATE PER GRAVITY. MONITOR SR NO ECTOPY, PT ID BRACELET TO RT WRIST , PT ID'D WITH 2 IDENTIFIERS. BILAT SCDS ON AND WORKING 0900 PT AWAKES TO TOUCH, ORAL AIRWAY OUT PT QUICKLY BACK TO SLEEP VSS.
--- NOTE | 2021-07-11 09:04 | SUR.PHASEI ---
CLARIFICATION TO ABOVE ENTRY, URINE IS YELLOW BUT NOT CLEAR, MILKY IN APPEARANCE.
--- NOTE | 2021-07-11 09:14 | SUR.PHASEI ---
0905 PT AWAKE ALERT TALKATIVE, PT DENIES PAIN AND OR NAUSEA, VSS ABDOMEN REMAINS SOFT.
--- NOTE | 2021-07-11 10:10 | PM.PN ---
Subjective Subjective: Patient is seen post operatively. She reports her right lower quadrant pain has resolved after surgery. Denies any fevers, chills, chest pain or shortness of breath. Endorses severe headache and reports she feels very dehydrated. Denies other new complaints. Medications: Reviewed: Yes Vitals/I&O/Wt Last Vital Signs Temp 99.0 F 07/11/21 09:40 Pulse 89 07/11/21 09:40 Resp 18 07/11/21 09:40 BP 129/80 07/11/21 09:40 Pulse Ox 96 07/11/21 09:40 07/10/21 07/11/21 07/11/21 22:59 06:59 14:59 Intake Total 1220 / 1220 750 / 750 Output Total 0 / 0 Balance 1220 / 1220 750 / 750 Weight last 48 hrs Weight 117.798 kg Weight 108.862 kg Physical Exam Narrative: General: Patient is awake and alert. Appears uncomfortable. Head:? Normocephalic. Atraumatic. EOM intact. Neck: No JVD. Cardiovascular: RRR. No gallops. No murmurs. No peripheral edema. Lungs: Clear to auscultation, no use of accessory muscles, no crackles or wheezes. Skin: No jaundice. No rashes. Abdomen: Normal bowel sounds, abdomen soft and nontender. Genito Urinary: Pino catheter Extremeties: No cyanosis or clubbing. Musculoskeletal: 5/5 strength, normal range of motion, no swollen or erythematous joints. Neurological: Moves all 4 extremities. No myoclonus. Urinary Catheter Management: Pino Latex: Cath Placed During This Visit: yes Urinary Catheter Date of Insertion: 07/11/21 Urinary Catheter Time of Insertion: 08:43 Data : 07/11/21 05:00 07/11/21 05:00 Micro: Microbiology 07/10/21 22:30 Blood Culture - Preliminary Blood SPECIMEN COLLECTED 07/10/21 22:15 Blood Culture - Preliminary Blood SPECIMEN COLLECTED A&P Assessment and plan (1) Pyelonephritis: Blood cultures x2 are pending. Continue Zosyn. Status: Acute (2) Hydronephrosis: Urology following. Patient is status post right ureteral stent placed without difficulty.? 7 Togolese by 26 cm double-pigtail without string. Multimodal pain control Status: Acute Qualifiers: Hydronephrosis type: unspecified Qualified Code(s): N13.30 - Unspecified hydronephrosis (3) Ureteropelvic junction (UPJ) obstruction, right: Status post stent as above Status: Acute (4) Headache: Tylenol PRN. Restart home pain and headache medications. Status: Acute (5) Leukocytosis: Likely reactive to infection. Continue IV abx. Status: Acute (6) Iron deficiency anemia: Severely low iron storage. Transfusion goal of 7. Avoid over transfusion. Will hold off on IV iron give active infection. Start PO iron. Likely needs referred for outpatient colonoscopy. Continue PO iron. Status: Acute (7) Hypertension: Monitor blood pressure closely. Start home lisinopril. Ensure adequate pain control. Status: Acute (8) Hyponatremia: Start IV fluids. Hold Lasix. Status: Acute (9) Obesity: Would eventually benefit from weight loss. Status: Acute (10) Diverticulosis: Status: Acute (11) COPD (chronic obstructive pulmonary disease): Continue home Symbicort. Continue home breathing treatments. Albuterol nebs as needed. 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
[2021-07-11] MEDS: sodium chloride 0.9% 1,000 ML 125 ML IV ×2 (10:26→19:39)
[2021-07-11] MEDS: HYDROcodone-acetaminophen 5-325 mg Tablet 1 TAB PO ×2 (10:34→19:38)
[2021-07-11] MEDS: piperacillin-tazobactam 3.375 GM in sodium chloride 0.9% (plus) 50 ML IV ×2 (16:30→21:02)
[2021-07-11] MEDS: gabapentin 400 mg Capsule PO ×2 (16:56→20:55)
[2021-07-11] MEDS: propranolol 40 mg Tablet PO (16:57)
--- NOTE | 2021-07-11 17:09 | ANE.PACU2 ---
Inpatient post-anesthesia follow up: Airway intact: Yes Vital signs: Temperature 98.9 F Pulse Rate 83 Respiratory Rate 16 Blood Pressure 142/88 Pulse Oximetry 98 Oxygen Delivery Me thod Nasal Cannula Oxygen Flow Rate 5 Fraction of Inspir ed Oxygen Hydration adequate: Yes Nausea and vomiting: No Pain level: 2 Mental status: Baseline
[2021-07-11] MEDS: tizanidine 4 mg Tablet PO (20:55)
[2021-07-11] MEDS: amitriptyline 25 mg Tablet PO (20:55)
[2021-07-11] MEDS: pramipexole 0.25 mg Tablet 0.125 MG PO (20:55)
[2021-07-11] MEDS: enoxaparin 40 mg/0.4 mL Syringe SUBCUT (20:56)
[2021-07-12] VITALS (14 sets, daily range): BP systolic 86–116; BP diastolic 61–77; PULSE 53–80; RESP 16–19; TEMP 36.3–37.3; O2SAT 93–98
[2021-07-12 05:36] LABS: Basophils % 0.2 %; Eosinophils % 0.2 %; Lymphocytes # 1.2 10^3/uL (0.8-4.8); Lymphocytes % 7.2 %; Mean Corpuscular HGB Conc 27.8 g/dL (30.0-36.0); Mean Corpuscular Hemoglobin 18.4 pg (28.0-34.0); Mean Corpuscular Volume 66.3 fl (81-99); Mean Platelet Volume 10.8 fL (7.4-10.4); Monocytes # 1.2 10^3/uL (0.2-0.9); Monocytes % 7.5 %; Neutrophils # 13.75 10^3/uL (1.8-7.7); Neutrophils % 84.3 %; Nucleated Red Blood Cells % 0 %; Platelet Count 374 10^3/cmm (130-400); Red Blood Count 3.47 10^6/uL (4.1-5.3); Red Cell Distribution Width 19.1 % (12.1-15.1); White Blood Count 16.3 10^3/uL (4.0-10.0)
[2021-07-12] MEDS: sodium chloride 0.9% 1,000 ML 125 ML IV ×2 (05:45→10:41)
[2021-07-12] MEDS: piperacillin-tazobactam 3.375 GM in sodium chloride 0.9% (plus) 50 ML IV ×2 (05:45→14:41)
[2021-07-12 05:57] LABS: Hemoglobin 6.4 g/dL (11.5-15.3)
[2021-07-12 06:01] LABS: Albumin Level 3.8 g/dL (3.5-5.2); Anion Gap 13.7 (5-19); Blood Urea Nitrogen 17 mg/dL (8-23); Calcium 8.7 mg/dL (8.5-10.5); Carbon Dioxide 23 mmol/L (22-29); Chloride 105 mmol/L (98-107); Glomerular Filtration Rate 50.7 mL/min (90-130); Glucose 125 mg/dL (65-115); Phosphorus 4.5 mg/dL (2.5-4.5); Potassium 4.7 mmol/L (3.5-5.1); Sodium 137 mmol/L (136-145)
[2021-07-12] MEDS: cholecalciferol (vitamin D3) 5,000 unit Tablet 5000 UNIT PO (09:58)
[2021-07-12] MEDS: propranolol 40 mg Tablet PO ×2 (09:58→17:34)
[2021-07-12] MEDS: atorvastatin 40 mg Tablet 20 MG PO (09:58)
[2021-07-12] MEDS: gabapentin 400 mg Capsule PO ×2 (09:58→14:44)
[2021-07-12] MEDS: lisinopril 20 mg Tablet PO (09:59)
[2021-07-12] MEDS: fluoxetine 20 mg Capsule PO (09:59)
[2021-07-12] MEDS: ferrous sulfate EC 325 mg Tablet PO (09:59)
[2021-07-12] MEDS: pantoprazole DR 40 mg Tablet PO (09:59)
[2021-07-12] MEDS: sodium chloride 0.9% 100 mL Bag 50 ML IV (10:40)
--- NOTE | 2021-07-12 10:40 | PM.DCS ---
Discharge Providers Date of Admission: 07/10/21 23:57 Date of Discharge: July 12, 2021 Attending Provider at Admission: Oliver Morrison DO Attending Provider at Discharge: Hoang Gauthier MD Consults: Urology Diagnoses at Discharge Discharge Diagnosis (1) Pyelonephritis: Status: Acute (2) Hydronephrosis: Status: Acute Qualifiers: Hydronephrosis type: unspecified Qualified Code(s): N13.30 - Unspecified hydronephrosis (3) Ureteropelvic junction (UPJ) obstruction, right: Status: Acute (4) Headache: Status: Acute (5) Leukocytosis: Status: Acute (6) Iron deficiency anemia: Status: Acute (7) Hypertension: Status: Acute (8) Hyponatremia: Status: Acute (9) Obesity: Status: Acute (10) Diverticulosis: Status: Acute (11) COPD (chronic obstructive pulmonary disease): Status: Acute Reason for Visit Reason for Visit: left side pain Hospital Course Hospital Course Rhonda Rai is a 61-year-old female with a past medical history significant for obesity, microcytic iron deficiency anemia, and headaches who presented with right lower quadrant abdominal pain, found to have pyelonephritis, hydronephrosis, urinary tract infection, and right ureteropelvic junction obstruction. Urology was consulted. Patient underwent placement of right ureteral stent, 7 [place]ayan by 26 cm double pigtail without string. She was treated with IV Zosyn. Blood cultures remained negative. She was transitioned to cefdinir at discharge. She is to follow up with urology in 2 weeks. Patient was also found to have microcytic iron deficiency anemia. She was transfused 1 pRBC for hemoglobin less than 7. She is to follow up with her primary care provider in 1 to 2 weeks to discuss colon cancer screening. Patient discharged to home in stable condition. Physical Exam Narrative: General: Patient is awake and alert. No acute distress. Head: Normocephalic. Atraumatic. EOM intact. Pale mucous membranes. Neck: No JVD. Cardiovascular: RRR. No gallops. No murmurs. No peripheral edema. Lungs: Clear to auscultation, no use of accessory muscles, no crackles or wheezes. Skin: No jaundice. No rashes. Abdomen: Normal bowel sounds, abdomen soft and nontender. Extremeties: No cyanosis or clubbing. Musculoskeletal: No swollen or erythematous joints. Neurological: Moves all 4 extremities. No myoclonus. Urinary Catheter Management: Pino Latex: Cath Placed During This Visit: yes Reason for Continuing Indwelling Catheter: Other Urinary Catheter Date of Insertion: 07/11/21 Urinary Catheter Time of Insertion: 08:43 Discharge Data Studies Completed and Pending Completed Studies During Hospitalization Category Date Time Status CT abdomen pelvis wo con [id number] Urgent Cat Scan 07/10/21 19:26 Completed Pending at discharge Category Date Time Status Blood Culture Stat Lab 07/10/21 22:30 Results Fecal Occult Blood [Immunochemical Fecal OCB] Routine Lab 07/11/21 01:17 Uncollected Radiology Impressions Abdomen/Pelvis CT 07/10/21 19:26 IMPRESSION: 1. Severe right hydronephrosis with abrupt tapering of the ureter in the region of the ureteropelvic junction suggestive of an underlying ureteral stricture. Some retained contrast is seen in the right kidney parenchyma. Additionally right perinephric edema is present perhaps reflecting associated pyelonephritis. 2. Several left kidney nonobstructive calyceal stones. 3. Diverticulosis without diverticulitis. 4. Contrast seen in the urinary bladder. 5. Moderate hiatal hernia. 6. Vicarious secretion of contrast in the gallbladder. C-Arm Fluoroscopy 07/11/21 06:38 IMPRESSION: Right ureteral stent placement as above. Laboratory Results WBC 16.3 10^3/uL (4.0-10.0) H 07/12/21 04:55 RBC 3.47 10^6/uL (4.1-5.3) L 07/12/21 04:55 Hgb 6.4 g/dL (11.5-15.3) L* 07/12/21 04:55 Hct 23.0 % (37.0-47.0) L 07/12/21 04:55 MCV 66.3 fl (81-99) L 07/12/21 04:55 MCH 18.4 pg (28.0-34.0) L 07/12/21 04:55 MCHC 27.8 g/dL (30.0-36.0) L 07/12/21 04:55 RDW 19.1 % (12.1-15.1) H 07/12/21 04:55 Plt Count 374 10^3/cmm (130-400) 07/12/21 04:55 MPV 10.8 fL (7.4-10.4) H 07/12/21 04:55 Neut % (Auto) 84.3 % 07/12/21 04:55 Lymph % (Auto) 7.2 % 07/12/21 04:55 [place] % (Auto) 7.5 % 07/12/21 04:55 Eos % (Auto) 0.2 % 07/12/21 04:55 Baso % (Auto) 0.2 % 07/12/21 04:55 Neut # (Auto) 13.75 10^3/uL (1.8-7.7) H 07/12/21 04:55 Lymph # (Auto) 1.2 10^3/uL (0.8-4.8) 07/12/21 04:55 [place]linger # (Auto) 1.2 10^3/uL (0.2-0.9) H 07/12/21 04:55 Eos # (Auto) 0.0 10^3/uL (0.0-0.8) 07/12/21 04:55 Baso # (Auto) 0.0 10^3/uL (0.0-0.1) 07/12/21 04:55 Nucleated RBC % (auto) 0 % 07/12/21 04:55 Nucleated RBCs # 0.0 /100WBC 07/12/21 04:55 Sodium 137 mmol/L (136-145) 07/12/21 04:55 Potassium 4.7 mmol/L (3.5-5.1) 07/12/21 04:55 Chloride 105 mmol/L (98-107) 07/12/21 04:55 Carbon Dioxide 23 mmol/L (22-29) 07/12/21 04:55 Anion Gap 13.7 (5-19) 07/12/21 04:55 BUN 17 mg/dL (8-23) 07/12/21 04:55 Creatinine 1.1 mg/dL (0.5-0.9) H 07/12/21 04:55 GFR Calculation 50.7 mL/min (90-130) L 07/12/21 04:55 Glucose 125 mg/dL (65-115) H 07/12/21 04:55 Calculated Osmolality 282 mOsm/kg (285-295) L 07/11/21 05:00 Lactate 1.8 mmol/L (0.5-2.2) 07/10/21 22:07 Calcium 8.7 mg/dL (8.5-10.5) 07/12/21 04:55 Phosphorus 4.5 mg/dL (2.5-4.5) 07/12/21 04:55 Iron 10 ug/dL (37-145) L 07/10/21 22:07 TIBC 441 mcg/dl 07/10/21 22:07 % Saturation 2.2 % (20-50) L 07/10/21 22:07 Unsat Iron Binding 431 ug/dL (112-347) H 07/10/21 22:07 Ferritin 13 ng/mL (15-150) L 07/10/21 22:07 Total Bilirubin 0.5 mg/dL (0.15-1.2) 07/10/21 22:07 AST 13 U/L (0-32) 07/10/21 22:07 ALT 12 U/L (0-33) 07/10/21 22:07 Alkaline Phosphatase 134 IU/L (35-105) H 07/10/21 22:07 Total Protein 7.9 g/dL (6.6-8.7) 07/10/21 22:07 Albumin 3.8 g/dL (3.5-5.2) 07/12/21 04:55 Globulin 3.2 g/dL (1.3-4.6) 07/10/21 22:07 Lipase 28 U/L (13-60) 07/10/21 22:07 Urine Color Yellow (Yellow) 07/10/21 22:53 Urine Appearance Sl hazy (CLEAR) 07/10/21 22:53 Urine pH 5 (5-7) 07/10/21 22:53 Ur Specific [place] 1.020 (1.005-1.030) 07/10/21 22:53 Urine Protein Neg (Negative) 07/10/21 22:53 Urine Glucose (UA) Norm (Normal) 07/10/21 22:53 Urine Ketones Negative (Negative) 07/10/21 22:53 Urine Blood 2+ (Negative) H 07/10/21 22:53 Urine Nitrate Positive (Negative) H 07/10/21 22:53 Urine Bilirubin Neg (Negative) 07/10/21 22:53 Urine Urobilinogen Norm mg/dL (Negative) 07/10/21 22:53 Ur Leukocyte Esterase Negative (Negative) 07/10/21 22:53 Urine RBC 5-10 /hpf (0-2) H 07/10/21 22:53 Urine WBC 15-25 /hpf (0-5) H 07/10/21 22:53 Ur Squamous Epith Cells 15-25 /hpf (0-5) H 07/10/21 22:53 Amorphous Sediment Not Reportable 07/10/21 22:53 Urine Bacteria 3+ /hpf (NONE) H 07/10/21 22:53 Blood Type O Positive 07/12/21 07:50 Rho(D) Type Positive 07/12/21 07:50 Antibody Screen Negative 07/12/21 07:50 Crossmatch See Detail 07/12/21 07:50 Procedures Performed Right ureteral stent placement Vitals Last Vital Signs Temp 98.4 F 07/12/21 10:29 Pulse 54 L 07/12/21 10:29 Resp 18 07/12/21 10:29 BP 102/69 07/12/21 10:30 Pulse Ox 98 07/12/21 10:29 Discharge Plan Discharge Patient Disposition: Home Condition: Stable Prescriptions: New cefdinir 300 mg capsule 300 mg PO BID 10 Days Qty: 20 0RF Continued hydrocodone-acetaminophen 5-325 mg tablet 1 tab PO Q6H PRN (Reason: pain) Qty: 14 0RF ondansetron 4 mg tablet,disintegrating 4 mg PO Q6H PRN (Reason: nausea and vomiting) Qty: 14 0RF atorvastatin 10 mg Tablet 10 mg PO DAILY 0RF fluoxetine 20 mg capsule 20 mg PO DAILY 0RF lisinopril 20 mg PO DAILY 0RF ferrous sulfate 325 mg PO DAILY 0RF furosemide 40 mg PO DAILY 0RF gabapentin 400 mg Capsule 400 mg PO TID 0RF omeprazole 40 mg PO DAILY 0RF pramipexole 0.125 mg Tablet 0.125 mg PO BEDTIME 0RF Aimovig Autoinjector 140 mg/mL Auto-Injector See Rx Instructions .ROUTE .COMPLEX 0RF Rx Instructions: 140 mg subcutaneously TAKES MONTHLY BUT STATES SHE HASNT HAD FOR OVER A YEAR DUE TO INSURANCE amitriptyline 25 mg PO BEDTIME 0RF hydroxyzine pamoate 25 mg Capsule 25 mg PO TID PRN (Reason: Migraine Headache) 0RF hyoscyamine sulfate 0.125 mg Tablet 125 mg PO TID PRN (Reason: Diarrhea) 0RF indomethacin 50 mg Capsule 50 mg PO TID PRN (Reason: Migraine Headache) 0RF Rx Instructions: administer with food or milk Symbicort 160-4.5 mcg/actuation Hfa Aerosol Inhaler 2 puff INHALATION Q12H 0RF ipratropium-albuterol 0.5 mg-3 mg(2.5 mg base)/3 mL Solution For Nebulization 3 ml INHALATION Q4H PRN (Reason: Shortness Of Breath Or Wheezing) 0RF propranolol 40 mg Tablet 40 mg PO BID 0RF sumatriptan succinate 100 mg Tablet 100 mg PO Q2H PRN (Reason: Migraine Headache) 0RF Rx Instructions: do not exceed 2 doses per 24 hrs tizanidine 4 mg Tablet 4 mg PO BEDTIME 0RF Vitamin D3 5,000 units PO DAILY 0RF Proventil HFA 90 mcg/actuation Hfa Aerosol Inhaler 2 puff INHALATION QID PRN (Reason: Shortness Of Breath Or Wheezing) 0RF Discharge Orders: Discharge Order (Routine); Ordered 07/12/21 Ordered By: Hoang Gauthier Referrals: Dr. Mclaughlin @ [facility] [Other] - 07/16/21 8:45 am (Will need to bring insurance card to visit. This will be new PCP appointment.) Edward Perez MD [Physician] - 07/25/21 9:45 am (with Elvie Ledesma ) Discharge Diet: Cardiac Discharge Activity: Resume usual activity Patient Instructions: Opioid Safety Activity Restrictions/Additional Instructions: Follow-up with primary care provider to discuss colon cancer screening. Discharge Attestations Time Spent in Discharge Care*: greater than 30 min Quality Metrics Clinical Quality Measures [ No reported AMI, CVA or VTE this stay] Coding Level of Care Code Acute Chg FW DC note Diagnoses Pyelonephritis N12 Hydronephrosis N13.30 Hydronephrosis type: unspecified Ureteropelvic junction (UPJ) obstruction, right N13.5 Headache R51.9 Leukocytosis D72.829 Iron deficiency anemia D50.9 Hypertension I10 Hyponatremia E87.1 Obesity E66.9 Diverticulosis K57.90 COPD (chronic obstructive pulmonary disease) J44.9
--- NOTE | 2021-07-12 11:46 | PC.NURSE ---
Resumed care of patient at 1015 this morning from SUKUMAR Wilde.
[2021-07-12 16:21] LABS: Hematocrit 25.8 % (37.0-47.0); Hemoglobin 7.3 g/dL (11.5-15.3)
--- NOTE | 2021-07-12 17:58 | PC.NURSE ---
Addendum entered by Jessica Mena RN 07/12/21 18:30: Patient voided without difficult post perez removal. Addendum entered by Jessica Mena RN 07/12/21 18:02: Perez removed 1800 Original Note: Called Dr calabrese for Perez d/c and is ok with patient going home this evening.
== END 2021-07-12 18:30 | disposition home or self-care (01) | DRG 660 ==
LOC: ER 07-11 00:15 → MEDSURG 07-11 00:28
PROVIDERS: Urology; Admitting Provider Internal Medicine; Emergency Provider Emergency Medicine; Visit Provider Internal Medicine
PROC: 0TJB8ZZ Inspection of Bladder, Via Natural or Artificial Opening Endoscopic (ICD-10-PCS; CPT 52000; principal; 2021-07-11 08:15)
PROC: 0T768DZ Dilation of Right Ureter with Intraluminal Device, Via Natural or Artificial Opening Endoscopic (ICD-10-PCS; CPT 74420; 2021-07-11 08:15)
PROC: 0T768DZ Dilation of Right Ureter with Intraluminal Device, Via Natural or Artificial Opening Endoscopic (ICD-10-PCS; CPT 50605; 2021-07-11 08:15)
DX: N13.6 Pyonephrosis (principal); E87.1 Hypo-osmolality and hyponatremia; Z68.41 Body mass index [BMI] 40.0-44.9, adult; N20.0 Calculus of kidney; D50.9 Iron deficiency anemia, unspecified; I10 Essential (primary) hypertension; E66.01 Morbid (severe) obesity due to excess calories; K57.90 Diverticulosis of intestine, part unspecified, without perforation or abscess without bleeding; J44.9 Chronic obstructive pulmonary disease, unspecified; E78.5 Hyperlipidemia, unspecified; R51.9 Headache, unspecified; K21.9 Gastro-esophageal reflux disease without esophagitis; Z79.891 Long term (current) use of opiate analgesic
CPT/HCPCS: 36415; 36430; 74176; 76000; 80048; 80053; 80069; 81001; 82728; 83540; 83550; 83605; 83690; 85014; 85018; 85025; 86850; 86900; 86920; 87040; 93005; 96365; 96366; 96372; 96375; 99285; C2625; J1100; J1650; J2270; J2405; J2543; J2704; J3010; J7030; P9016

== ENCOUNTER → 2021-07-25 08:02 | Outpatient (BNVA) | payer OTHER, MEDICAID, SELFPAY | PROVIDERS: Visit Provider Nurse Practitioner Family | DX: N12 Tubulo-interstitial nephritis, not specified as acute or chronic (principal); N13.5 Crossing vessel and stricture of ureter without hydronephrosis | CPT/HCPCS: 81003; 99213 ==

== ENCOUNTER → 2021-09-07 09:06 | Outpatient (BNVA) | payer OTHER, MEDICAID, SELFPAY | PROVIDERS: Referring Provider Family Medicine; Visit Provider Specialist | DX: G43.711 Chronic migraine without aura, intractable, with status migrainosus (principal); E66.01 Morbid (severe) obesity due to excess calories; Z68.41 Body mass index [BMI] 40.0-44.9, adult | CPT/HCPCS: 99204 ==

== ENCOUNTER 2021-09-11 11:00 | Outpatient (CLI) | payer OTHER, MEDICAID, SELFPAY ==
--- NOTE | 2021-09-11 11:45 | PFTS_ITS ---
Date of Study:09/11/21 Date of Dictation: 09/15/2021 MECHANICS: Postbronchodilator forced vital capacity (FVC) is normal. Prebronchodilator FEV1 is moderately reduced. Postbronchodilator forced expiratory volume in one second (FEV1) is normal. FEV1/FVC is reduced. There is significant postbronchodilator response FLOW VOLUME LOOP: Sloping of expiratory limb suggestive of airway obstruction . LUNG VOLUMES:not measured DIFFUSING CAPACITY FOR CARBON MONOXIDE: not measured . INTERPRETATION: The postbronchodilator spirometry showed moderated obstruction which has improved significantly post bronchodilation. Lung volumes and Gas transfer are not measured. Clinical correlation recommended. MTDD
--- NOTE | 2021-09-11 13:09 | PFTS_ITS ---
Date of Study:09/11/21 Date of Dictation: MECHANICS: Forced vital capacity (FVC) is . Forced expiratory volume in one second (FEV1) is . FEV1/FVC is . FLOW VOLUME LOOP: . LUNG VOLUMES: Total lung capacity (TLC) is . Residual volume (RV) is . DIFFUSING CAPACITY FOR CARBON MONOXIDE: . INTERPRETATION: The pulmonary function tests are . mechanics and lung volumes. Gas exchange (DLCO) is . MTDD
== END 2021-09-11 11:01 | disposition home or self-care (01) ==
PROVIDERS: PCP Family Medicine; Visit Provider Family Medicine
DX: J44.9 Chronic obstructive pulmonary disease, unspecified (principal)
CPT/HCPCS: 94060; J7614

== ENCOUNTER → 2021-12-06 09:00 | Outpatient (BNVA) | payer OTHER, BC, MEDICAID, SELFPAY | PROVIDERS: PCP Family Medicine; Visit Provider Specialist | DX: G43.711 Chronic migraine without aura, intractable, with status migrainosus (principal); G62.89 Other specified polyneuropathies; Z86.69 Personal history of other diseases of the nervous system and sense organs; M14.60 Charcot's joint, unspecified site; M21.961 Unspecified acquired deformity of right lower leg; M21.962 Unspecified acquired deformity of left lower leg | CPT/HCPCS: 99214; 99215 ==

== ENCOUNTER → 2022-01-01 13:23 | Outpatient (BNVA) | payer OTHER, BC, MEDICAID, SELFPAY | PROVIDERS: PCP Family Medicine; Visit Provider Podiatrist Foot & Ankle Surgery | DX: I89.0 Lymphedema, not elsewhere classified (principal); M21.611 Bunion of right foot; M21.612 Bunion of left foot | CPT/HCPCS: 73630; 99204 ==

== ENCOUNTER 2022-01-25 09:12 | Outpatient (CLI) | payer OTHER, BC, MEDICAID, SELFPAY ==
--- NOTE | 2022-01-25 09:30 | MR_ITS ---
WS: [id number] MRI HEAD WITHOUT CONTRAST TECHNIQUE: Sagittal T1, T2 axial, T2 axial FLAIR, axial and coronal T1 images, axial susceptibility w eighted imaging, axial diffusion weighted images, and coronal T2 images were obtained. CLINICAL INFORMATION: G43.711 - Chronic migraine without aura, intractable, wit... COMPARISON: None. FINDINGS: No evidence of restricted diffusion to suggest acute ischemia. Ventricular system and basal cisterns are patent. Mild small vessel changes. Mild parenchymal volume loss. Normal posterior fossa. Normal v ascular flow voids at the skull base. No extra-axial fluid collections. Paranasal sinuses are well ae rated. Mastoid air cells are well aerated. Normal posterior nasopharynx. Normal parapharyngeal fat. N o hemosiderin on susceptibly weighted images. Normal optic chiasm and pituitary infundibulum. Temporal lobes and hippocampal formations are normal in appearance. No hemosiderin on susceptibly weighted images. Cerebellar tonsils are normal in appear ance. Normal posterior fossa. MR/MR head wo con* [id number] IMPRESSION: 1. No evidence of restricted diffusion to suggest acute ischemia. 2. Mild small vessel changes with mild parenchymal volume loss. 3. No hemosiderin on susceptibly weighted images. 4. Cerebellar tonsils are normal in appearance. Normal posterior fossa 5. No other significant findings.
== END 2022-01-25 09:13 | disposition home or self-care (01) ==
LOC: RAD 09:12
PROVIDERS: PCP Family Medicine; Visit Provider Specialist
DX: G43.711 Chronic migraine without aura, intractable, with status migrainosus (principal)
CPT/HCPCS: 70551

== ENCOUNTER 2022-03-05 13:38 | Outpatient (CLI) | payer OTHER, BC, MEDICAID, SELFPAY ==
--- NOTE | 2022-03-05 13:57 | XRR_ITS ---
PROCEDURE INFORMATION: Exam: XR Right Shoulder Exam date and time: 03/05/2022 1:57 PM Age: 62 years old Clinical indication: Injury or trauma; Fall; Blunt trauma (contusions or hematomas); Patient HX: Fell two months ago and injured right shoulder, pain has worsened sinbce; Additional info: RT shoulder pain TECHNIQUE: Imaging protocol: Radiologic exam of the Right shoulder. Views: 2 or more views. COMPARISON: No relevant prior studies available. FINDINGS: Bones/joints: Negative for acute bony abnormality. Soft tissues: Normal. XR/XR shoulder RT min 2V* [id number] IMPRESSION: No acute findings.
== END 2022-03-05 13:39 | disposition home or self-care (01) ==
PROVIDERS: PCP Family Medicine; Visit Provider Family Medicine
DX: M25.511 Pain in right shoulder (principal)
CPT/HCPCS: 73030

== ENCOUNTER 2022-03-07 14:16 | Outpatient (CLI) | payer OTHER, BC, MEDICAID, SELFPAY ==
--- NOTE | 2022-03-07 15:06 | XR_ITS ---
WS: [id number] KUB, AP view, 03/07/2022 Clinical Data: STONES Comparison: None. Findings: No abnormal intraabdominal masses or calcifications are seen. There is no dilatated small bowel or ev idence of obstruction. There is a moderate amount of fecal material throughout the colon. XR/XR KUB [id number] Impression: Negative KUB.
== END 2022-03-07 14:17 | disposition home or self-care (01) ==
PROVIDERS: PCP Family Medicine; Visit Provider Urology
DX: N20.0 Calculus of kidney (principal)
CPT/HCPCS: 74018; 81003; 99213

== ENCOUNTER 2022-03-18 05:47 | Day surgery (SDC) | payer OTHER, BC, MEDICAID, SELFPAY ==
[2022-03-14 13:20] VITALS: BMI 40.7
--- NOTE | 2022-03-14 13:29 | ECG_ITS ---
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 Measurements Intervals Power Rate: 102 P: 0 KS: 136 QRS: -5 QRSD: 111 T: 22 QT: 349 QTc: 457 Interpretive Statements SINUS TACHYCARDIA POSSIBLE LEFT ATRIAL ENLARGEMENT [-0.1mV P-WAVE IN V1/V2] POSSIBLE ANTERIOR MYOCARDIAL INFARCTION , PROBABLY OLD [30 ms Q WAVE IN V3/V4, OR R < 0.2 mV IN V4] ABNORMAL RHYTHM ECG Compared to ECG 07/11/2021 07:45:35 Myocardial infarct finding now present Sinus rhythm no longer present Electronically Signed On 03-14-2022 20:49:13 TITLE SEARCHER by India Soto M.D. [email or web address]
[2022-03-14 13:48] LABS: Basophils # 0.1 10^3/uL (0.0-0.1); Basophils % 1.3 %; Eosinophils # 0.3 10^3/uL (0.0-0.8); Eosinophils % 2.6 %; Hematocrit 32.1 % (37.0-47.0); Hemoglobin 9.4 g/dL (11.5-15.3); Lymphocytes # 2.1 10^3/uL (0.8-4.8); Lymphocytes % 21.4 %; Mean Corpuscular HGB Conc 29.3 g/dL (30.0-36.0); Mean Corpuscular Volume 75.2 fl (81-99); Mean Platelet Volume 10.6 fL (7.4-10.4); Monocytes # 0.6 10^3/uL (0.2-0.9); Monocytes % 5.8 %; Neutrophils # 6.69 10^3/uL (1.8-7.7); Neutrophils % 68.5 %; Nucleated Red Blood Cells % 0 %; Platelet Count 373 10^3/cmm (130-400); Red Blood Count 4.27 10^6/uL (4.1-5.3); Red Cell Distribution Width 15.5 % (12.1-15.1); White Blood Count 9.8 10^3/uL (4.0-10.0)
--- NOTE | 2022-03-14 13:48 | ANES.PREANE2 ---
Pre-Anesthetic Assessment Height/Weight: Height 1.65 m Weight 111.13 kg Operation Date: 03/18/22 07:00 Proposed Procedures p CYSTOSCOPY, LEFT, STENT, EXTRACORPOREAL SHOCKWAVE LITHOTRIPSY 85099, 84255, N20.9(Not Applicable) - Edward Perez MD s Ureteral Stent Placement(Left) - MD guadalupe Philippe ESWL(Left) - Edward Perez MD Familial anesthetic complications: PONV - scopolamine works well for her Social No alcohol and No tobacco Airway Mallampati: Class II Dentition: other (no teeth) Pulmonary Asthma and Chronic Obstructive Pulmonary Disease CV/HEM Hypertension Hepatic None reported GI Gastroesophageal Reflux Disease Metabolic None reported Neuropsych incidental finding of chiari malformation seen on CT, but repeat MRI shows no evidence of this. However, patient has had headaches since she was young Anesthetic Plan ASA status: 3 Anesthesia: General Risk of > 500 ml blood loss (7ml/kg in children): No Medications/Allergies Home Medications Medication Instructions Recorded Confirmed Last Taken Type ondansetron 4 mg disintegrating 4 mg PO Q6H PRN nausea and 07/10/21 03/14/22 07/10/21 Rx tablet vomiting #14 tabs Vitamin D3 5,000 units PO DAILY 07/11/21 03/14/22 03/14/22 History albuterol sulfate 90 mcg/actuation 2 puff inhalation QID PRN 07/11/21 03/14/22 03/14/22 History aerosol inhaler (Proventil HFA) Shortness Of Breath Or Wheezing atorvastatin 10 mg tablet 10 mg PO DAILY 07/11/21 03/14/22 03/14/22 History ferrous sulfate 325 mg PO DAILY 07/11/21 03/14/22 03/14/22 History furosemide 40 mg PO DAILY 07/11/21 03/14/22 03/14/22 History hydroxyzine pamoate 25 mg capsule 25 mg PO TID PRN Headache 07/11/21 03/14/22 03/13/22 History hyoscyamine sulfate 0.125 mg tablet 125 mg PO TID PRN Diarrhea 07/11/21 03/14/22 Unknown History ipratropium 0.5 mg-albuterol 3 mg 3 ml inhalation Q4H PRN Shortness 07/11/21 03/14/22 Unknown History (2.5 mg base)/3 mL nebulization Of Breath Or Wheezing soln lisinopril 20 mg PO DAILY 07/11/21 03/14/22 03/14/22 History omeprazole 40 mg PO DAILY 07/11/21 03/14/22 03/14/22 History pramipexole 0.125 mg tablet 0.125 mg PO BEDTIME 07/11/21 03/14/22 03/13/22 History (Mirapex) sumatriptan succinate 100 mg 100 mg PO Q2H PRN Migraine Headache 07/11/21 03/14/22 03/13/22 History tablet (Imitrex) telmisartan 40 mg-amlodipine 5 mg 1 tab PO DAILY 07/25/21 03/14/22 03/14/22 History tablet tizanidine 4 mg tablet 4 mg PO BEDTIME PRN Pain 07/25/21 03/14/22 Unknown History tramadol 100 mg capsule 100 mg PO DAILY PRN Pain 07/25/21 03/14/22 Unknown History 24h,extended release(25-75) propranolol 40 mg tablet 40 mg PO BID #60 tabs 09/07/21 03/14/22 03/14/22 Rx venlafaxine 150 mg 150 mg PO DAILY #30 caps 09/07/21 03/14/22 03/14/22 Rx capsule,extended release 24 hr (Effexor XR) erenumab-aooe 140 mg/mL 140 mg SUBCUT .monthly #1 mL 02/27/22 03/14/22 03/03/22 Rx subcutaneous auto-injector (Aimovig Autoinjector) gabapentin 400 mg capsule 400 mg PO TID #90 caps 02/27/22 03/14/22 03/14/22 Rx Allergies Allergy/AdvReac Type Severity Reaction Status Date / Time amitriptyline Allergy ADR-Halluci Verified 03/14/22 13:09 nating Sulfa (Sulfonamide Allergy ALGY-Hives Verified 03/07/22 15:41 Antibiotics) [facility] Anesthesia Medical History Anxiety COPD (chronic obstructive pulmonary disease) CPAP (continuous positive airway pressure) dependence Diverticulosis Gastroesophageal reflux Hyperlipidemia Hypertension Iron deficiency anemia Irritable bowel syndrome (IBS) Migraine Sleep apnea Status post nephrectomy Ureteropelvic junction (UPJ) obstruction, right Urolithiasis Surgical History History of colonoscopy History of thumb surgery History of tonsillectomy Family History Mother , at age 32 Lupus Vasculitis Father Cardiac aneurysm CAD (coronary artery disease) Dementia Sister , AT AGE 31 Enlarged heart Brother Kidney calculus Grandmother , at age 72 Dialysis patient Grandfather , at age 75 Colon cancer Grandmother , at age 64 Cancer Breast Denies family history of Anesthesia complication Bleeding disorder Social History Smoking and tobacco status: never smoked Alcohol intake: current Alcohol intake frequency: holidays/special occasions only Lives independently: Yes Household members: spouse Marital status: Current occupational status: retired History of recent travel: No Data Anesthesia 03/14/22 13:35 03/14/22 13:35 Cardiac Studies: No Data to Display
[2022-03-14 14:19] LABS: Anion Gap 14.9 (5-19); Blood Urea Nitrogen 12 mg/dL (8-23); Calcium 9.4 mg/dL (8.5-10.5); Carbon Dioxide 23 mmol/L (22-29); Chloride 104 mmol/L (98-107); Glomerular Filtration Rate 63.7 mL/min (90-130); Glucose 155 mg/dL (65-115); Osmolality Calculated 289 mOsm/kg (285-295); Potassium 3.9 mmol/L (3.5-5.1); Sodium 138 mmol/L (136-145)
[2022-03-18] VITALS (9 sets, daily range): BP systolic 114–168; BP diastolic 71–98; PULSE 64–71; RESP 12–20; TEMP 36.3–37.1; O2SAT 94–100
--- NOTE | 2022-03-18 05:49 | XRR_ITS ---
PROCEDURE INFORMATION: Exam: XR Abdomen Exam date and time: 03/18/2022 6:14 AM Age: 62 years old Clinical indication: Screening exam; Other: Pre operative; Additional info: Preop left eswl TECHNIQUE: Imaging protocol: Radiologic exam of the abdomen. Views: Frontal supine view of the abdomen. 1 View. COMPARISON: CR XR KUB [id number] 03/07/2022 3:08 PM FINDINGS: Gastrointestinal tract: No significant large or small bowel distention. Multiple oval radiopaque ingested medication tablets or capsules within bowel. Organs: A couple small left renal lower pole calculi and possible small right renal calculus. Bones/joints: No acute osseous abnormality. XR/XR KUB [id number] IMPRESSION: A couple small left renal lower pole calculi and possible small right renal calculus.
--- NOTE | 2022-03-18 06:37 | P.HPUD_ITS ---
Surgery/Procedure H&P Update DATE OF PROCEDURE: March 18, 2022 DATE H&P PERFORMED: 03/07/22 H&P UPDATE INFORMATION: I have reviewed H&P completed within last 30 days, I have examined patient prior to procedure, No changes to prior documentation and [place] [facility] [place] date indicated PREOP DIAGNOSIS: Kidney stones, left PRIMARY INDICATION FOR PROCEDURE: 2 LLP stones, solitary kidney Rationale for trying to clear his to avoid emergency obstructive processes in the future. I reviewed with her that the stones represent a potential risk only at this point. If they did drop down though that would certainly elevate the risk and that was the main reason that she wanted to try to become stone free Stone risk reduction strategies also reviewed previously. PLANNED PROCEDURE: Operation Date: 03/18/22 07:00 Proposed Procedures p CYSTOSCOPY, LEFT, STENT, EXTRACORPOREAL SHOCKWAVE LITHOTRIPSY 06648, 64422, N20.9(Not Applicable) - Edward Perez MD s Ureteral Stent Placement(Left) - Edward Perez MD s ESWL(Left) - Edward Perez MD
[2022-03-18] MEDS: sodium chloride 0.9% 1,000 ML 30 ML IV (06:45)
[2022-03-18] MEDS: scopolamine 1.5 Patch 1 PATCH TRANSDERMA (06:47)
[2022-03-18] MEDS: levofloxacin-dextrose 5 % 500 MG/100 ML PREMIX 100 MG IV (06:57)
--- NOTE | 2022-03-18 07:31 | P.ANESUD_ITS ---
Pre-Anesthetic Update Pre-Anesthetic Assessment: Date of Surgery/Procedure: 03/18/22 Preop Seema gnosis: Kidney stones, left Proposed Procedure: Operation Date: 03/18/22 07:00 Proposed Procedures p CYSTOSCOPY, LEFT, STENT, EXTRACORPOREAL SHOCKWAVE LITHOTRIPSY 01199, 50194, N20.9(Not Applicable) - Edward Perez MD s Ureteral Stent Placement(Left) - MD guadalupe Philippe ESWL(Left) - Edward Perez MD Any changes to Pre-Anesthetic Assessment?: No Last Intake: Intake Last Liquid Date 03/17/22 Last Liquid Time 22:30 Last Solid Date 03/16/22 Last Solid Time 19:00 Vitals: Temperature 98.7 F 03/18/22 06:40 Temperature Source Temporal Artery S can 03/18/22 06:40 Pulse Rate 70 03/18/22 06:40 Respiratory Rate 18 03/18/22 06:40 Blood Pressure 168/98 03/18/22 06:40 Blood Pressure Leonor n 121 03/18/22 06:40 Pulse Oximetry 94 03/18/22 06:40 Oxygen Delivery Me thod 03/18/22 06:40 Exam: Pre-Anes Outpt Exam: alert, oriented x 3, clear to auscultation bilaterally and regular rate & rhythm Cardiac Studies: No Data to Display
--- NOTE | 2022-03-18 08:21 | PM.OP ---
Operative Report Date of procedure: March 18, 2022 Pre-op diagnosis: Left lower pole stones x2 (solitary kidney) Post-op diagnosis: Left lower pole stones x2 (solitary kidney) Procedure done: 1. Left renal ESWL x2 stones 2. Cystoscopy left ureteral stent placement (6 Jordanian by 26 cm double-pigtail without string) Implants: Left ureteral stent Specimens removed/disposition: None Pathology: None Surgeon: Chris Project Manager Entertainment [employer] Media: Lithotripsy Presales Senior Specialist: Zheng Estimated blood loss: Minimal Urine output: Not measured Complications: None Findings: Anesthesia: General Condition: Stable Disposition: PACU Intraoperative findings: Excellent change noted to both stones with 2200 shocks. 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 She requested treatment to try to become stone free. We ultimately after good discussion elected ESWL. Procedure: After routine preoperative evaluation examination and obtaining of informed consent she was taken to the operating suite on 03/19/2022 where general anesthesia was administered without difficulty after appropriate timeout was performed, SCDs confirmed to be functioning, preoperative antibiotics administered, beta-addy protocol confirmed. She was positioned on the Dornier unit in supine position paying careful attention to avoiding pressure points. The shock head was positioned posteriorly. Shockwave therapy was initiated in intensity and 1 and a rate of 60 and after about 300 shocks a several minute pause was performed. Intensity eventually and slowly increased to maximum of 4. Shock rate was maintained at 60 for most of the procedure and advanced AD after significant change was noted. Both stones were effectively treated with excellent change in difficulty identifying the stones at the completion of the procedure. Procedure was stopped after 2200 shocks because of the good results. She did well throughout the procedure with no concerns. She was then repositioned in dorsolithotomy position paying careful attention to avoiding pressure points. Prepped and draped in the usual sterile fashion. 21 Jordanian cystoscope with 30 degree lens was introduced into urethra meatus and advanced into the bladder without difficulty. Flexible tip guidewire was easily advanced up the left ureter into the area consistent with the upper pole calyx and then a 6 Jordanian by 26 cm double-pigtail stent was advanced over the guidewire through the cystoscope into appropriate position as confirmed via fluoroscopy and cystoscopy. Stent was confirmed to be functioning. The bladder was drained and the procedure was completed. Tolerated procedure well without complications and was awakened in the operating room and returned to the recovery room in stable condition. PLANS: 1. Anticipate discharge from outpatient surgery 2. Follow-up early next week for KUB and likely cystoscopy and stent removal
--- NOTE | 2022-03-18 08:31 | SUR.PHASEI ---
0823 PT TO PACU 5 SLEEPING WITH ORAL AIRWAY IN PLACE GOOD RESP EFFORT NOTED ABDOMEN SOFT, PT IV TO LT WRIST WITH #20 JELCO WITH NS 100ML AT KVO RATE PER GRAVITY, ID BRACELET TO RT WRIST PT ID'D WITH 2 IDENTIFIERS, MONITOR SR WITH NO ECTOPY NOTED PT HAS BILAT SCDS ON. 0834 PT AWAKES AND ORAL AIRWAY OUT, PT VERBALLY DENIES PAIN AND NAUSEA AND COLD AT THIS TIME, VSS. ABDOMEN REMAINS SOFT TO PALPATION.
--- NOTE | 2022-03-18 08:50 | PC.NURSE ---
called for post op appointment . his nurse will call pt with appointment time and time for x-ray time.
[2022-03-18] MEDS: HYDROcodone-acetaminophen 5-325 mg Tablet 1 TAB PO (09:09)
--- NOTE | 2022-03-18 11:54 | P.PCN_ITS ---
PACU note Narrative: VSS, Good respiratory effort, report to DICTAPHONE OPERATOR Exam: awake
--- NOTE | 2022-03-18 11:54 | PM.PACU ---
PACU note Narrative: VSS, Good respiratory effort, report to TRADE SHOW MANAGER Exam: awake
--- NOTE | 2022-03-18 14:53 | ANE.PACU2 ---
Inpatient post-anesthesia follow up: Airway intact: Yes Vital signs: Temperature 97.8 F Pulse Rate 64 Respiratory Rate 18 Blood Pressure 137/87 Pulse Oximetry 95 Oxygen Delivery Me thod Room Air Oxygen Flow Rate 8 Fraction of Inspir ed Oxygen Hydration adequate: Yes Nausea and vomiting: No Pain level: 2 Mental status: Baseline
== END 2022-03-18 09:36 | disposition home or self-care (01) ==
PROVIDERS: Anesthesiology; PCP Family Medicine; Visit Provider Urology
PROC: 0TJB8ZZ Inspection of Bladder, Via Natural or Artificial Opening Endoscopic (ICD-10-PCS; CPT 52000; principal; 2022-03-18 07:00)
PROC: (CPT 50605; 2022-03-18 07:00)
PROC: (CPT 50590; 2022-03-18 07:00)
DX: N20.2 Calculus of kidney with calculus of ureter (principal); Q60.0 Renal agenesis, unilateral; J44.9 Chronic obstructive pulmonary disease, unspecified; I10 Essential (primary) hypertension; E78.5 Hyperlipidemia, unspecified; G47.30 Sleep apnea, unspecified
CPT/HCPCS: 50590; 52332; 74018; 80048; 85025; 93005; C2625; J1100; J1956; J2405; J2704; J3010; J3490; J7030

== ENCOUNTER 2022-03-25 11:40 | Outpatient (CLI) | payer OTHER, BC, MEDICAID, SELFPAY ==
--- NOTE | 2022-03-25 12:16 | XR_ITS ---
WS: [email or web address] Exam: XR KUB [id number] Date/Time of Exam: 03/25/2022 12:17 PM Reason For Exam: Urolithiasis Comparison 03/18/2022. No bowel obstruction or free air. A left-sided pigtail ureteral stent catheter is noted and appears t o be in satisfactory position. Calcifications overlie both kidneys and apparently represent known prosper al stones. No sign of organ enlargement. Bony structures are intact. XR/XR KUB [id number] IMPRESSION: 1. Left-sided ureteral stent catheter appearing be in satisfactory location. 2. No acute process noted. Bilateral known renal calculi.
== END 2022-03-25 11:41 | disposition home or self-care (01) ==
PROVIDERS: PCP Family Medicine; Visit Provider Urology
DX: N20.9 Urinary calculus, unspecified (principal)
CPT/HCPCS: 74018; 99024

== ENCOUNTER 2022-04-03 11:49 | Outpatient (CLI) | payer OTHER, BC, MEDICAID, SELFPAY | END 2022-04-03 11:50 | disposition home or self-care (01) | LOC: SPT 11:49 | PROVIDERS: PCP Family Medicine; Visit Provider Podiatrist Foot & Ankle Surgery | DX: Z46.89 Encounter for fitting and adjustment of other specified devices (principal); M21.611 Bunion of right foot; M21.612 Bunion of left foot; M79.671 Pain in right foot; M79.672 Pain in left foot; I89.0 Lymphedema, not elsewhere classified | CPT/HCPCS: 97760; 99213; L4397 ==

== ENCOUNTER → 2022-04-10 09:48 | Outpatient (BNVA) | payer OTHER, BC, MEDICAID, SELFPAY | PROVIDERS: PCP Family Medicine; Visit Provider Specialist | DX: G43.711 Chronic migraine without aura, intractable, with status migrainosus (principal); M54.2 Cervicalgia; G62.9 Polyneuropathy, unspecified; A52.16 Charcot's arthropathy (tabetic) | CPT/HCPCS: 99213 ==

== ENCOUNTER 2022-04-17 12:17 | Outpatient (CLI) | payer OTHER, BC, MEDICAID, SELFPAY ==
--- NOTE | 2022-04-17 12:25 | XR_ITS ---
WS: [email or web address] KUB, AP view, 04/17/2022 Clinical Data: stones Comparison: KUB, 03/25/2022 Findings: There are calcifications overlying the left kidney but none on the right. No abnormal intraabdominal masses are seen. There is no dilatated small bowel or evidence of obstruct ion. The left ureteral catheter remains in the same position. XR/XR KUB [id number] Impression: 1. Left renal calcification. 2. No change in left ureteral stent.
== END 2022-04-17 12:18 | disposition home or self-care (01) ==
LOC: RAD 12:20
PROVIDERS: PCP Family Medicine; Visit Provider Urology
DX: N20.0 Calculus of kidney (principal); Z96.0 Presence of urogenital implants; N20.9 Urinary calculus, unspecified
CPT/HCPCS: 52310; 74018; 81003

== ENCOUNTER → 2022-04-29 11:57 | Outpatient (BNVA) | payer OTHER, BC, MEDICAID, SELFPAY | PROVIDERS: PCP Family Medicine; Visit Provider Anesthesiology Pain Medicine | DX: M47.892 Other spondylosis, cervical region (principal); M54.2 Cervicalgia | CPT/HCPCS: 72050; 99204 ==

== ENCOUNTER → 2022-05-20 12:47 | Outpatient (BNVA) | payer OTHER, BC, MEDICAID, SELFPAY | PROVIDERS: PCP Family Medicine; Visit Provider Anesthesiology Pain Medicine | DX: M54.81 Occipital neuralgia (principal); M54.2 Cervicalgia | CPT/HCPCS: 64405; J1030; J3490 ==

== ENCOUNTER 2022-05-21 07:39 | Outpatient (CLI) | payer OTHER, BC, MEDICAID, SELFPAY ==
--- NOTE | 2022-05-21 08:31 | MM_ITS ---
WS: [email or web address] BILATERAL SCREENING DIGITAL TOMOSYNTHESIS MAMMOGRAM WITH CAD HISTORY: SCREENING COMPARISON: None available. Bilateral CC and MLO views with tomosynthesis and synthetic mammography submitted. Computer aided det ection analyzed. Breast composition: There are scattered areas of fibroglandular density. No suspicious masses, microc alcifications or architectural distortion. MM/[place] [id number] IMPRESSION: BI-RADS: 1-Negative FOLLOW UP: 1 Year Follow-up
== END 2022-05-21 07:40 | disposition home or self-care (01) ==
LOC: RAD 07:42
PROVIDERS: PCP Family Medicine; Visit Provider Family Medicine
DX: Z12.31 Encounter for screening mammogram for malignant neoplasm of breast (principal); G62.89 Other specified polyneuropathies
CPT/HCPCS: 77063; 77067; 95911

== ENCOUNTER 2022-05-29 09:23 | Outpatient (CLI) | payer OTHER, BC, MEDICAID, SELFPAY ==
--- NOTE | 2022-05-29 09:30 | MR_ITS ---
WS: [id number] MRI CERVICAL SPINE NONCONTRAST HISTORY: M54.2 - Cervicalgia COMPARISON: Cervical radiograph 04/29/2022 Technique: Multiplanar, multisequence noncontrast imaging of the cervical spine. 2 mm anterolisthesis of C3. Otherwise alignment is normal. Mild disc space narrowing and desiccation of the cervical spine. Mild hypertrophic bone formation and cervical spine. Craniocervical junction, C1 and C2 relationship, odontoid process and soft tissues are normal. C2-C3: Normal. C3-C4: Small central disc protrusion with small foraminal osteophytes. Minimal encroachment upon the central canal. No significant stenosis. C4-C5: Mild disc bulging and osteophytic ridging and facet arthritis. Very mild encroachment upon the ventral thecal sac. No high-grade stenosis. C5-C6: Mild osteophytic ridging and facet arthritis. Minimal foraminal encroachment by osteophytes. C6-C7: Mild annular disc bulge and osteophytic ridging. Very minimal foraminal encroachment by osteop hyte. C7-T1: Normal. Paraspinal soft tissue are normal. MR/MR cervical spin wo con* [id number] IMPRESSION: 1. No high-grade central or foraminal stenosis. 2. Central disc protrusion at C3-4 with mild encroachment upon the ventral the robin sac. No cord compression. 3. Mild foraminal narrowing at C5-6 and C6-7 due to osteophytes. No significa nt stenosis.
== END 2022-05-29 09:24 | disposition home or self-care (01) ==
PROVIDERS: PCP Family Medicine; Visit Provider Anesthesiology Pain Medicine
DX: M25.78 Osteophyte, vertebrae; M50.21 Other cervical disc displacement, high cervical region; M48.02 Spinal stenosis, cervical region
CPT/HCPCS: 72141

== ENCOUNTER → 2022-06-04 09:32 | Outpatient (BNVA) | payer OTHER, BC, MEDICAID, SELFPAY | PROVIDERS: PCP Family Medicine; Visit Provider Anesthesiology Pain Medicine | DX: M54.2 Cervicalgia (principal); M25.511 Pain in right shoulder | CPT/HCPCS: 99215 ==

== ENCOUNTER → 2022-06-27 13:52 | Outpatient (BNVA) | payer OTHER, BC, MEDICAID, SELFPAY | PROVIDERS: PCP Family Medicine; Visit Provider Anesthesiology Pain Medicine | DX: M54.81 Occipital neuralgia (principal); M54.2 Cervicalgia | CPT/HCPCS: 64405; J1030; J3490 ==

== ENCOUNTER 2022-07-16 10:52 | Outpatient (RCR) | payer OTHER, BC, SELFPAY | END 2022-07-31 23:59 | disposition home or self-care (01) | LOC: SPT 10:52 | PROVIDERS: PCP Family Medicine; Visit Provider Pediatrics | DX: M25.511 Pain in right shoulder (principal) | CPT/HCPCS: 97110; 97162 ==

== ENCOUNTER 2022-07-16 15:17 | Outpatient (CLI) | payer OTHER, BC, SELFPAY ==
--- NOTE | 2022-07-16 15:29 | XR_ITS ---
WS: [email or web address] KUB, AP view, 07/16/2022 Clinical Data: STONES Comparison: KUB, 04/17/2022 Findings: The left ureteral stent has been removed. No abnormal intraabdominal masses are seen. There is no dilatated small bowel or evidence of obstruct ion. Fecal material obscures detail over the right kidney. There may be a calcification overlying the infe rior pole of the left kidney. XR/XR KUB [id number] Impression: 1. Removal left ureteral stent. 2. Possible left renal calcification.
== END 2022-07-16 15:18 | disposition home or self-care (01) ==
PROVIDERS: PCP Family Medicine; Visit Provider Urology
DX: N20.9 Urinary calculus, unspecified (principal)
CPT/HCPCS: 74018; 81003; 99213

== ENCOUNTER → 2022-07-25 10:49 | Outpatient (BNVA) | payer OTHER, BC, SELFPAY | PROVIDERS: PCP Family Medicine; Visit Provider Anesthesiology Pain Medicine | DX: M54.2 Cervicalgia (principal) | CPT/HCPCS: 99214 ==

== ENCOUNTER → 2022-08-26 09:16 | Outpatient (BNVA) | payer OTHER, BC, MEDICAID, SELFPAY | PROVIDERS: PCP Family Medicine; Visit Provider Anesthesiology Pain Medicine | DX: M54.81 Occipital neuralgia (principal); M54.2 Cervicalgia | CPT/HCPCS: 64405; 99212; J1030; J3490 ==

== ENCOUNTER 2022-08-27 13:12 | Outpatient (CLI) | payer OTHER, BC, MEDICAID, SELFPAY ==
--- NOTE | 2022-08-27 13:28 | MR_ITS ---
WS: [email or web address] MRI RIGHT SHOULDER NONCONTRAST TECHNIQUE: Sagittal T2, coronal T1, T2 and proton density imaging. Axial gradient PDE imaging. CLINICAL INFORMATION: SHOULDER JOINT PAIN, RIGHT COMPARISON: None. FINDINGS: Some images degraded by patient motion. Diffuse edema in the AC joint with subacromial subdeltoid fluid.Narrowing of the Subacromial space. Chronic thinning of the distal supraspinatus. Undersurface tear with tendinopathy involving the dista l supraspinatus. No tendon retraction. Motion degrades images in this area. Degenerative subchondral cystic change greater tuberosity. Infraspinatus appears intact. Normal teres minor. Chronic thinning of the distal subscapularis tendon . Biceps tendon appears intact within the bicipital groove. Slight medial subluxation of the proximal biceps tendon. Atrophic intra-articular biceps tendon likely chronic due to chronic partial tear. De generative fraying glenoid labrum. MR/MR shoulder RT wo con* [id number] IMPRESSION: Some imaging is limited by motion. 1. Moderate degenerative arthritis AC joint with subacromial and subdeltoid fl uid. Narrowing of the subacromial space. 2. Impingement of the supraspinatus with partial undersurface tear and tendino alisia. Chronic thinning of the distal supraspinatus. No tendon retraction. 3. Normal infraspinatus. 4. Chronic appearing partial tear involving the distal supraspinatus with slig ht medial subluxation of the proximal biceps tendon. 5. Atrophic intra-articular biceps tendon likely chronic due to chronic partia l tear 6. Small subcoracoid effusion. 7. No other acute findings considering motion artifact.
== END 2022-08-27 13:13 | disposition home or self-care (01) ==
LOC: RAD 13:13
PROVIDERS: PCP Family Medicine; Visit Provider Family Medicine
DX: M19.011 Primary osteoarthritis, right shoulder (principal); M62.521 Muscle wasting and atrophy, not elsewhere classified, right upper arm; M25.411 Effusion, right shoulder
CPT/HCPCS: 73221

== ENCOUNTER → 2022-09-20 09:04 | Outpatient (BNVA) | payer OTHER, BC, MEDICAID, SELFPAY | PROVIDERS: PCP Family Medicine; Referring Provider Family Medicine; Visit Provider Student in an Organized Health Care Education/Training Program | DX: M75.41 Impingement syndrome of right shoulder (principal); S46.911A Strain of unspecified muscle, fascia and tendon at shoulder and upper arm level, right arm, initial encounter; M19.011 Primary osteoarthritis, right shoulder; W19.XXXA Unspecified fall, initial encounter | CPT/HCPCS: 20610; 73030; 99204; J3301 ==

== ENCOUNTER → 2022-09-25 09:06 | Outpatient (BNVA) | payer OTHER, BC, MEDICAID, SELFPAY | PROVIDERS: Visit Provider Anesthesiology Pain Medicine | DX: M54.2 Cervicalgia (principal) | CPT/HCPCS: 99213 ==

== ENCOUNTER 2022-10-02 07:31 | Outpatient (RCR) | payer OTHER, BC, MEDICAID, SELFPAY | END 2022-10-31 23:59 | disposition home or self-care (01) | LOC: SPT 07:31 | PROVIDERS: PCP Family Medicine; Visit Provider Student in an Organized Health Care Education/Training Program | DX: M19.011 Primary osteoarthritis, right shoulder (principal) | CPT/HCPCS: 97110; 97161 ==

== ENCOUNTER → 2022-10-30 09:22 | Outpatient (BNVA) | payer OTHER, BC, MEDICAID, SELFPAY | PROVIDERS: PCP Family Medicine; Visit Provider Specialist | DX: G43.711 Chronic migraine without aura, intractable, with status migrainosus (principal); G62.9 Polyneuropathy, unspecified | CPT/HCPCS: 99213 ==

== ENCOUNTER → 2022-11-14 08:45 | Outpatient (BNVA) | payer OTHER, BC, MEDICAID, SELFPAY | PROVIDERS: PCP Family Medicine; Visit Provider Student in an Organized Health Care Education/Training Program | DX: M75.41 Impingement syndrome of right shoulder; M75.101 Unspecified rotator cuff tear or rupture of right shoulder, not specified as traumatic; M19.011 Primary osteoarthritis, right shoulder; S46.211A Strain of muscle, fascia and tendon of other parts of biceps, right arm, initial encounter; X58.XXXA Exposure to other specified factors, initial encounter | CPT/HCPCS: 99214 ==

== ENCOUNTER 2022-12-04 07:25 | Day surgery (SDC) | payer OTHER, BC, MEDICAID, SELFPAY ==
[2022-12-04] VITALS (9 sets, daily range): BP systolic 121–163; BP diastolic 90–105; PULSE 72–90; RESP 16–18; TEMP 36.2–36.5; O2SAT 90–96; BMI 39.6
[2022-12-04] MEDS: scopolamine 1.5 Patch 1 PATCH TRANSDERMA (08:07)
[2022-12-04] MEDS: acetaminophen 1,000 MG/100 ML PIGGYBACK 400 MG IV (08:08)
[2022-12-04] MEDS: sodium chloride 0.9% 1,000 ML 30 ML IV (08:12)
[2022-12-04] MEDS: ketorolac 30 mg/mL INJ IVP (08:21)
--- NOTE | 2022-12-04 08:53 | W.PM.OPSUD ---
Surgery/Procedure H&P Update DATE OF PROCEDURE: December 04, 2022 DATE H&P PERFORMED: 11/14/22 H&P UPDATE INFORMATION: I have reviewed H&P completed within last 30 days, I have examined patient prior to procedure and No changes to prior documentation PREOP DIAGNOSIS: Right shoulder AC joint arthritis, subacromial impingement, partial rotator PRIMARY INDICATION FOR PROCEDURE: Right shoulder AC joint arthritis, subacromial impingement partial rotator cuff tear bicep tendon tear PLANNED PROCEDURE: Operation Date: 12/04/22 09:00 Proposed Procedures p Shoulder Arthroscopy(Right) - Daniel Galdamez DO s AC Joint Resection(Right) - DO guadalupe Lockwood Bicep Tenotomy(Right) - DO guadalupe Lockwood Subacromial Decompression(Right) - DO guadalupe Lockwood Debridement Upper Extremity(Right) - Daniel Galdamez DO
--- NOTE | 2022-12-04 09:25 | P.ANESASSM_ITS ---
Pre-Anesthetic Assessment Height/Weight: Height 1.65 m Weight 107.955 kg Temp Pulse Resp BP Pulse Ox O2 Del Method 97.7 F 82 18 163/105 96 Nasal Cannula 12/04/22 08:01 12/04/22 08:01 12/04/22 08:01 12/04/22 08:01 12/04/22 08:01 12/04/22 08:03 Preop Diagnosis: Right shoulder AC joint arthritis, subacromial impingement, partial rotator Operation Date: 12/04/22 09:00 Proposed Procedures p Shoulder Arthroscopy(Right) - Daniel Grenada, DO s AC Joint Resection(Right) - Daniel Gren[place], DO s Bicep Tenotomy(Right) - Daniel [place], DO s Subacromial Decompression(Right) - Daniel Denice, DO s Debridement Upper Extremity(Right) - Daniel Gren[place], DO Familial anesthetic complications: None Was Beta Nancy taken within 24 hours: N/A Was Clonidine taken within 24 hours: N/A Last intake: Intake Last Liquid Date 12/03/22 Last Liquid Time 19:00 Last Solid Date 12/03/22 Last Solid Time 19:00 Social No alcohol and No tobacco Exam alert, oriented x 3, clear to auscultation bilaterally and regular rate & rhythm Airway Dentition: other (no teeth) Pulmonary Chronic Obstructive Pulmonary Disease CV/HEM Hypertension GI Gastroesophageal Reflux Disease Metabolic Hyperlipidemia Anesthetic Plan ASA status: 3 Anesthesia: General and Regional (specify below) Risk of > 500 ml blood loss (7ml/kg in children): No Medications/Allergies Home Medications Medication Instructions Recorded Confirmed Last Taken Type ondansetron 4 mg disintegrating 4 mg PO Q6H PRN nausea and 07/10/21 12/04/22 12/03/22 Rx tablet vomiting #14 tabs Vitamin D3 5,000 units PO DAILY 07/11/21 12/04/22 12/03/22 History albuterol sulfate 90 mcg/actuation 2 puff inhalation QID PRN 07/11/21 12/04/22 12/03/22 History aerosol inhaler (Proventil HFA) Shortness Of Breath Or Wheezing atorvastatin 10 mg tablet 10 mg PO DAILY 07/11/21 12/04/22 12/03/22 History ferrous sulfate 325 mg PO DAILY 07/11/21 12/04/22 12/03/22 History furosemide 40 mg PO DAILY 07/11/21 12/04/22 12/03/22 History hydroxyzine pamoate 25 mg capsule 25 mg PO TID PRN Headache 07/11/21 12/04/22 12/03/22 History hyoscyamine sulfate 0.125 mg tablet 125 mg PO TID PRN Diarrhea 07/11/21 12/04/22 12/03/22 History ipratropium 0.5 mg-albuterol 3 mg 3 ml inhalation Q4H PRN Shortness 07/11/21 12/04/22 12/03/22 History (2.5 mg base)/3 mL nebulization Of Breath Or Wheezing soln lisinopril 20 mg PO DAILY 07/11/21 12/04/22 12/03/22 History omeprazole 40 mg PO DAILY 07/11/21 12/04/22 12/03/22 History tizanidine 4 mg tablet 4 mg PO BEDTIME PRN Pain 07/25/21 12/04/22 12/03/22 History tramadol 100 mg capsule 100 mg PO DAILY PRN Pain 07/25/21 12/04/22 12/03/22 History 24h,extended release(25-75) propranolol 40 mg tablet 40 mg PO BID #60 tabs 09/07/21 12/04/22 12/03/22 Rx amlodipine 5 mg tablet 5 mg PO DAILY 03/18/22 12/04/22 12/03/22 History Night splint #1 ea 04/03/22 11/14/22 Unknown Rx gabapentin 400 mg capsule 400 mg PO TID #90 caps 04/10/22 12/04/22 12/03/22 Rx venlafaxine 150 mg 150 mg PO DAILY #30 caps 04/10/22 12/04/22 12/03/22 Rx capsule,extended release 24 hr (Effexor XR) acetaminophen 500 mg tablet 500 mg PO Q6H PRN Pain 04/29/22 12/04/22 11/27/22 History (Tylenol Extra Strength) semaglutide 0.25 mg or 0.5 mg (2 mg SUBCUT Weight Loss 07/10/22 11/14/22 11/15/22 History mg/1.5 mL) subcutaneous pen injector (Ozempic) cyclobenzaprine 7.5 mg tablet 7.5 mg PO TID 09/20/22 12/04/22 12/03/22 History sumatriptan succinate 100 mg tablet See Rx Instructions .Route 09/26/22 12/04/22 12/03/22 Rx .COMPLEX #9 tabs erenumab-aooe 140 mg/mL 140 mg SUBCUT .monthly #1 mL 10/30/22 12/04/22 11/20/22 Rx subcutaneous auto-injector (Aimovig Autoinjector) rimegepant 75 mg disintegrating 75 mg PO ONCE #14 tabs 10/30/22 12/04/22 12/03/22 Rx tablet (Nurtec ODT) hydrocodone 5 mg-acetaminophen 325 1 tab PO Q6H PRN pain 5 days #20 12/04/22 Unknown Rx mg tablet tabs ondansetron 4 mg disintegrating 4 mg PO Q8H PRN nausea and 12/04/22 Unknown Rx tablet vomiting 3 days #9 tabs Allergies Allergy/AdvReac Type Severity Reaction Status Date / Time amitriptyline Allergy ADR-Halluci Verified 12/04/22 07:52 nating Sulfa (Sulfonamide Allergy ALGY-Hives Verified 12/04/22 07:52 Antibiotics) Current Medications Generic Name Dose Route Start Last Admin Trade Name Freq PRN Reason Stop Dose Admin Sodium Chloride 1,000 mls @ 30 mls/hr 12/04/22 07:45 12/04/22 08:12 Sodium Chloride 0.9% IV 12/05/22 07:44 30 mls/hr .Q24H WHITNEY Administration PFSH Anesthesia Medical History Anxiety COPD (chronic obstructive pulmonary disease) CPAP (continuous positive airway pressure) dependence Diverticulosis Gastroesophageal reflux Hyperlipidemia Hypertension Iron deficiency anemia Irritable bowel syndrome (IBS) Migraine Sleep apnea Status post nephrectomy Ureteropelvic junction (UPJ) obstruction, right Urolithiasis Surgical History History of colonoscopy History of thumb surgery History of tonsillectomy Family History Mother , at age 32 Lupus Vasculitis Father Cardiac aneurysm CAD (coronary artery disease) Dementia Sister , AT AGE 31 Enlarged heart Brother Kidney calculus Grandmother , at age 72 Dialysis patient Grandfather , at age 75 Colon cancer Grandmother , at age 64 Cancer Breast Denies family history of Anesthesia complication Bleeding disorder Social History Smoking and tobacco status: former smoker Second hand smoke exposure: No Alcohol intake: current Alcohol intake frequency: holidays/special occasions only Alcohol type: wine Substance/Drug Use: never Lives independently: Yes Household members: spouse Marital status: Current occupational status: retired Data Anesthesia Cardiac Studies: No Data to Display
[2022-12-04] MEDS: ceFAZolin 2,000 MG in sodium chloride 0.9% (plus) 50 ML 100 MG IV (09:50)
--- NOTE | 2022-12-04 10:26 | ANES.PROC ---
Anesthesia Procedures Procedure/Date: 12/04/22 Nerve Block ^: Nerve Block 1: Main Anesthesia: general anesthesia Time Out Performed: Yes Consent: requested by attending/covering physician, from patient, from other, risks and benefits reviewed and patient agrees to proceed Nerve block location: interscalene and supraclavicular (R) Anesthesia monitors applied: pulse oximetry, EKG, BP cuff and oxygen Nerve block position: semi sitting Anesthetic Used: ropivicaine 0.5% (30 ml) and with decadron Ultrasound used to: recognize landmarks and in supraclavicular region Nerve Stimulator Used?: No Interscalene/Femoral BLK: 2 stimuplex 22 g needle used for position and inplane approach, visualize local anesthetic spread and no vascular puncture identified Patient Tolerated Procedure: well Complications: none Additional Comments: High suprclavicular d/t poor US anatomy of interscalene
[2022-12-04] MEDS: EPINEPHrine 1 mg/mL INJ 2 MG XX (11:30)
--- NOTE | 2022-12-04 11:55 | PM.OP ---
Operative Report Date of procedure: December 04, 2022 Implants: Single medial row 4.75 swivel lock anchor and single lateral row 4.75 swivel lock anchor preloaded with 2 fiber tapes Surgeon: Daniel Galdamez DO Transmission Supervisor: LEX Alcal[place] was necessary for this case and assistance with assistance in arm positioning as well as passing of instrumentation and grasping a suture and placement of anchors for rotator cuff repair Procedure: Preoperative diagnosis: Right shoulder AC joint arthritis, partial rotator cuff tear, Subacromial impingement, Bicep tendon tear Post-op diagnosis:? Right?shoulder?labral tear Right?shoulder?biceps tendon tear Right?shoulder?rotator cuff tear RIght?shoulder?AC joint arthritis RIght?shoulder?subacromial bursitis/impingement Procedure done: RIght?shoulder?diagnostic and surgical arthroscopy with arthroscopic rotator cuff repair(medium) RIght?shoulder?diagnostic and surgical arthroscopy biceps tenotomy RIght?shoulder?diagnostic and surgical arthroscopy labral debridement Right?shoulder?diagnostic and surgical arthroscopy acromioclavicular joint resection RIght?shoulder?diagnostic and surgical arthroscopy subacromial decompression (acromioplasty and bursectomy) Surgeon: Daniel Galdamez DO Estimated blood loss: [10 ]mL IV fluids: See anesthesia record Implants: Arthrex 4.75 swivel lock x2 Arthrex scorpion and suture tape Complications: None Condition: stable Disposition: same day Brief History: Patient been seen and worked up in the outpatient setting for Right?shoulder?pain.? Pt had an MRI which showed findings below.? Patient's failed conservative treatment and has weakness.? We talked about treatment options far as nonoperative and operative intervention..? We talked about risk benefits complication alternatives surgical nonsurgical treatment options.? Understanding risk of surgery pt agrees to proceed with surgical intervention.? All questions have been answered at this time.? Patient elects proceed with surgery and consent obtained in office. MR/MR shoulder RT wo con* [id number] IMPRESSION: Some imaging is limited by motion. ? 1.? Moderate degenerative arthritis AC joint with subacromial and subdeltoid fluid. Narrowing of the subacromial space. 2.? Impingement of the supraspinatus with partial undersurface tear and tendinopathy. Chronic thinning of the distal supraspinatus. No tendon retraction. 3.? Normal infraspinatus. 4.? Chronic appearing partial tear involving the distal supraspinatus with slight medial subluxation of the proximal biceps tendon. 5.? Atrophic intra-articular biceps tendon likely chronic due to chronic partial tear 6.? Small subcoracoid effusion. 7.? No other acute findings considering motion artifact. Procedure: Patient seen evaluated in the preoperative holding area.? Consent reviewed and signed with patient.? Once again reviewed patient's MRI results as well as? planned surgical intervention.? Correct extremity marked.? Patient seen evaluated by anesthesia department received regional anesthesia.? Once ready for surgery was taken back to the operative suite.? Patient then subsequently underwent anesthesia per the anesthesia department was transported onto the OR table.? Patient was then placed into a lateral decubitus position with a beanbag and was appropriately secured to the bed.? All bony prominences well-padded.? Patient then had the right upper extremity was then prepped and draped in standard orthopedic fashion.? Patient received appropriate preoperative antibiotics.? Final timeout performed. The right upper extremity was then held in hanging from traction utilizing sterile technique.? Next started with standard diagnostic and surgical arthroscopy with posterior portal position introduced arthroscope into the glenohumeral joint.? Visualized the glenohumeral joint I then introduced a spinal needle within the rotator cuff interval to confirm appropriate anterior portal placement.? Once this was confirmed I then made my small incision and then introduced my arthroscopic shaver into the glenohumeral joint.? After thorough debridement was clearly evident patient had a significant erythema as well as positive liftoff sign of the biceps anchor and biceps tendon tear as it was pulled within the joint.? Decision at this time was made to perform a biceps tenotomy.? Introduced a thermal wand and a biceps tenotomy was performed to completion With appropriate release.? Next I evaluated the subscapularis tendon which was intact and no evidence of tear. ?Next there was significant labral tearing at biceps anchor and circumferential.? ? I then subsequently utilized a a arthroscopic shaver and thermal wand to perform a labral debridement.? This point time I then visualized the glenohumeral joint.? The glenohumeral joint was found to have grade 1-2? chondromalacia throughout.? Infrapatellar pouch was free of loose bodies from viewing the posterior portal.? Next a visualized the rotator cuff superiorly and there was found to be a medium sized undersurface tearing of the supraspinatus tendon.? I utilized a spinal needle to amanda this location.? ?This completed my work within the glenohumeral joint all fluid was suctioned free of the joint.? ?Next I reintroduced the arthroscope posteriorly.? And went to the subacromial space.? I established my lateral working portal at the site of which my spinal needle was marking of the rotator cuff tear.? Thermal wand was then introduced laterally and then I subsequently performed extensive bursectomy of the subacromial space.? Patient had a large anterior bone spur.? At this point time I proceeded with my AC joint resection thermal wand was used and track to the anterior edge of the acromion and then tracked all the way to the AC joint.? Once identified the AC joint this was very arthritic in nature.? Thermal wand was placed anteriorly to establish appropriate plane for AC joint resection.? Once appropriate margins and anterior inferior and anterior capsule was released I then introduced arthroscopic shaver and a bur and performed AC joint resection of both the acromion to cope plane at the AC joint and a distal clavicle resection was then performed totaling 1 cm in size and was confirmed.? This completed my AC joint resection and I then introduced the arthroscopic shaver laterally while continuing to view posteriorly.? I then performed an acromioplasty to complete my subacromial decompression prior to fixing the rotator cuff tear.? Next the arthroscopic shaver was then used previous spinal needle spot that is marked the 90% of the tendon was torn and decision was made at that point in time to complete this care and perform a full-thickness rotator cuff repair of this tear ended up being medium in size. This tear would be amendable for a single medial row and single lateral row anchor repair fixation with 4 passes of fiber tape through the cuff. I utilized spinal needle to perform appropriate trajectory and placement of my accessory portal. Once I was satisfied with this placement and had appropriate man's angle for my medial row anchor site I subsequently made a small stab incision. I utilized the arthroscopic shaver to decorticate the footprint to have healthy bleeding bone. Next utilizing a punch for the medial row anchor this was then punched and a 4.75 mm swivel lock was then loaded and impacted into place this had excellent fixation next I individually utilizing a scorpion passed all 4 strands of the suture through the rotator cuff and loaded this on a single lateral row anchor. I marked this spot on the lateral aspect of the greater tuberosity for appropriate cuff tensioning and excursion for my repair. I then utilized a punch loaded the swivel lock and subsequently under appropriate tension impacted the swivel lock of my lateral row anchor and appropriate position once this was then complete I had excellent fixation and repair of the rotator cuff. I then had a final confirmation of appropriate repair of the supraspinatus rotator cuff tendon tear.? Sutures were then cut with an arthroscopic suture cutter and subsequently evaluated the rotator cuff repair.? Repair was found to be satisfactory?shoulder?was taken through range of motion and the repair moved as a unit with no evidence of loss of fixation. ?I then switched the arthroscope to the lateral portal to confirm this tension-free repair.? I took the?shoulder?through range of motion and the rotator cuff repair was stable and moved as a unit. ?Next I then introduced the arthroscopic shaver posteriorly to complete my subacromial decompression appropriate complaining all the way up to the lateral edge of the acromion.? This completed the surgery.? All fluid was suctioned from the?shoulder.? All instruments were removed.? The lateral incision was then closed with nylon stitches.? As well as the portal sites closed with portal nylon stitches.? Xeroform 4 x 4's ABD and tape was then applied to the?shoulder?and was placed into a?shoulder?abduction pillow sling for rotator cuff repair.? Patient was then awakened from anesthesia and then taken back to PACU in stable condition.? Patient tolerated procedure without any issues. Disposition: Patient taken back in stable condition recovering well.? Dressings on in place clean dry and intact.? Will be nonweightbearing to the operative upper extremity.? Follow rotator cuff repair protocol.? Patient to follow-up with me in the office in 2 weeks.? Patient will receive appropriate discharge instruction as well as pain medication postoperatively.? All questions answered.? We will contact the office for any questions or concerns.
--- NOTE | 2022-12-04 11:55 | P.BOP_ITS ---
Date of procedure: [December 04, 2022] Surgeon name: Dr. Denice MASON Diet Technician Registered(s) name(s): Hoang Galdamez physician junior administrative assistant Procedure(s) performed: [Right shoulder diagnostic and arthroscopy, AC joint resection, biceps tenotomy, subacromial decompression, rotator cuff repair] Description of findings: [Right shoulder AC joint arthritis, subacromial impingement and partial rotator cuff tear, bicep tenodesis] Estimated blood loss: [5 ml] Specimen(s) removed: [n/a] Post-operative diagnosis: [Right shoulder AC joint arthritis, subacromial impingement and partial rotator cuff tear, bicep tenodesis]
--- NOTE | 2022-12-04 12:00 | PM.PACU ---
PACU note Narrative: Patient is a 62-year-old female who just underwent a right shoulder diagnostic and arthroscopy procedure. Patient's right arm is in a UltraSling. Patient transferred to PACU in stable condition. Pain is well controlled. shoulder Dressing on , dry and in place. Patient is awake and alert and able to respond to my questions accordingly. Patient's fingers are warm with good perfusion. Patient can wiggle fingers. Normal cap refill under 2 seconds. Unable to assess further range of motion of arm due to sling. Sensation to hand is intact. Exam: awake Disposition: discharged
--- NOTE | 2022-12-04 12:35 | ANE.PACU2 ---
Inpatient post-anesthesia follow up: Airway intact: Yes Vital signs: Temperature 97.4 F Pulse Rate 73 Respiratory Rate 16 Blood Pressure 121/91 Pulse Oximetry 94 Oxygen Delivery Me thod Room Air Oxygen Flow Rate Fraction of Inspir ed Oxygen Hydration adequate: Yes Nausea and vomiting: No Pain level: 1 Mental status: Baseline
== END 2022-12-04 13:10 | disposition home or self-care (01) ==
PROVIDERS: PCP Family Medicine; Visit Provider Student in an Organized Health Care Education/Training Program
PROC: (CPT 29805; principal; 2022-12-04 09:00)
PROC: 0RSG0ZZ Reposition Right Acromioclavicular Joint, Open Approach (ICD-10-PCS; CPT 29824; 2022-12-04 09:00)
PROC: (CPT 24310; 2022-12-04 09:00)
PROC: (CPT 29826; 2022-12-04 09:00)
PROC: (CPT 29824; 2022-12-04 09:00)
PROC: (CPT 29827; 2022-12-04 09:00)
DX: M75.101 Unspecified rotator cuff tear or rupture of right shoulder, not specified as traumatic (principal); M25.811 Other specified joint disorders, right shoulder; S46.121A Laceration of muscle, fascia and tendon of long head of biceps, right arm, initial encounter; X58.XXXA Exposure to other specified factors, initial encounter; S43.401A Unspecified sprain of right shoulder joint, initial encounter; M19.011 Primary osteoarthritis, right shoulder; J44.9 Chronic obstructive pulmonary disease, unspecified; I10 Essential (primary) hypertension; K21.9 Gastro-esophageal reflux disease without esophagitis; E78.5 Hyperlipidemia, unspecified; G47.30 Sleep apnea, unspecified
CPT/HCPCS: 29824; 29826; 29827; 29828; C1713; J0131; J0171; J0690; J1100; J1170; J1885; J2405; J2704; J2795; J3010; J3490; J7030

== ENCOUNTER → 2022-12-19 09:31 | Outpatient (BNVA) | payer OTHER, BC, MEDICAID, SELFPAY | PROVIDERS: PCP Family Medicine; Visit Provider Physician Assistant | DX: Z98.890 Other specified postprocedural states (principal) | CPT/HCPCS: 99024 ==

== ENCOUNTER → 2022-12-26 09:30 | Outpatient (BNVA) | payer OTHER, BC, MEDICAID, SELFPAY | PROVIDERS: Visit Provider Anesthesiology Pain Medicine | DX: M54.2 Cervicalgia (principal) | CPT/HCPCS: 99213 ==

== ENCOUNTER 2023-01-08 09:11 | Outpatient (RCR) | payer OTHER, BC, MEDICAID, SELFPAY | END 2023-01-30 23:59 | disposition home or self-care (01) | LOC: SPT 09:11 | PROVIDERS: PCP Family Medicine; Visit Provider Physician Assistant | DX: Z98.890 Other specified postprocedural states (principal) | CPT/HCPCS: 97110; 97161 ==

== ENCOUNTER → 2023-01-14 14:37 | Outpatient (BNVA) | payer OTHER, BC, MEDICAID, SELFPAY | PROVIDERS: PCP Family Medicine; Visit Provider Anesthesiology Pain Medicine | DX: M54.81 Occipital neuralgia (principal); M54.2 Cervicalgia | CPT/HCPCS: 64405; J1030; J3490 ==

== ENCOUNTER 2023-01-31 06:00 | Outpatient (RCR) | payer OTHER, BC, MEDICAID, SELFPAY | END 2023-03-02 23:59 | disposition home or self-care (01) | LOC: SPT 06:00 | PROVIDERS: PCP Family Medicine; Visit Provider Physician Assistant | DX: Z98.890 Other specified postprocedural states (principal) | CPT/HCPCS: 97110 ==

== ENCOUNTER → 2023-02-04 09:18 | Outpatient (BNVA) | payer OTHER, BC, MEDICAID, SELFPAY | PROVIDERS: PCP Family Medicine; Visit Provider Student in an Organized Health Care Education/Training Program | DX: Z98.890 Other specified postprocedural states (principal) | CPT/HCPCS: 99024; 99213 ==

== ENCOUNTER → 2023-02-13 08:45 | Outpatient (BNVA) | payer OTHER, BC, MEDICAID, SELFPAY | PROVIDERS: PCP Family Medicine; Visit Provider Anesthesiology Pain Medicine | DX: M54.2 Cervicalgia (principal) | CPT/HCPCS: 99213 ==

== ENCOUNTER → 2023-04-23 08:58 | Outpatient (BNVA) | payer OTHER, BC, MEDICAID, SELFPAY | PROVIDERS: PCP Family Medicine; Referring Provider Family Medicine; Visit Provider Surgery | DX: R19.7 Diarrhea, unspecified (principal); Z12.11 Encounter for screening for malignant neoplasm of colon; D50.9 Iron deficiency anemia, unspecified | CPT/HCPCS: 99203 ==

== ENCOUNTER → 2023-05-06 08:54 | Outpatient (BNVA) | payer OTHER, BC, MEDICAID, SELFPAY | PROVIDERS: PCP Family Medicine; Visit Provider Student in an Organized Health Care Education/Training Program | DX: Z98.890 Other specified postprocedural states (principal) | CPT/HCPCS: 99213 ==

== ENCOUNTER → 2023-05-08 08:55 | Outpatient (BNVA) | payer OTHER, BC, MEDICAID, SELFPAY | PROVIDERS: PCP Family Medicine; Visit Provider Anesthesiology Pain Medicine | DX: M54.9 Dorsalgia, unspecified (principal); M54.2 Cervicalgia | CPT/HCPCS: 99213 ==

== ENCOUNTER → 2023-05-27 12:35 | Outpatient (BNVA) | payer OTHER, BC, MEDICAID, SELFPAY | PROVIDERS: PCP Family Medicine; Visit Provider Anesthesiology Pain Medicine | DX: M54.81 Occipital neuralgia (principal); M54.2 Cervicalgia; M54.9 Dorsalgia, unspecified | CPT/HCPCS: 64405; 99213; J1030; J3490 ==

== ENCOUNTER → 2023-08-12 13:40 | Outpatient (BNVA) | payer OTHER, BC, MEDICAID, SELFPAY | PROVIDERS: PCP Family Medicine; Visit Provider Anesthesiology Pain Medicine | DX: G43.711 Chronic migraine without aura, intractable, with status migrainosus (principal); M54.9 Dorsalgia, unspecified; M54.2 Cervicalgia | CPT/HCPCS: 64405; 99214; J1010; J3490 ==

== ENCOUNTER → 2023-12-17 09:59 | Outpatient (BNVA) | payer OTHER, BC, MEDICAID, SELFPAY | PROVIDERS: PCP Family Medicine; Visit Provider Specialist | DX: G43.711 Chronic migraine without aura, intractable, with status migrainosus (principal); G62.9 Polyneuropathy, unspecified; M54.81 Occipital neuralgia | CPT/HCPCS: 64405; 64450; 99214; J1010; J3490 ==

== ENCOUNTER 2024-01-01 14:03 | Oncology outpatient (recurring) (ONCR) | payer OTHER, BC, MEDICAID, SELFPAY ==
--- NOTE | 2023-12-25 12:21 | PC.NURSE ---
Verbal order from Akhil Brown, neurology nurse to date Vyepti order for 12/23/23.
[2024-01-01] MEDS: eptinezumab-jjmr 100 MG in sodium chloride 0.9% (100 ml) 100 ML 202 MG IV (15:00)
[2024-01-01 15:44] VITALS: BP 164/111; PULSE 67; RESP 16; TEMP 36.9; O2SAT 94
== END 2024-01-01 23:59 | disposition home or self-care (01) ==
PROVIDERS: PCP Family Medicine; Visit Provider Specialist
DX: Z79.899 Other long term (current) drug therapy (principal); G43.701 Chronic migraine without aura, not intractable, with status migrainosus
CPT/HCPCS: 96413; A4222; J3032

== ENCOUNTER 2024-01-23 13:25 | Outpatient (CLI) | payer OTHER, BC, MEDICAID, SELFPAY ==
--- NOTE | 2024-01-23 13:25 | MM_ITS ---
WS: [id number] BILATERAL 3D TOMOSYNTHESIS DIGITAL SCREENING MAMMOGRAPHY WITH CAD CLINICAL INFORMATION: SCREENING HISTORY: Screening mammogram. No current complaints. COMPARISON: 2022 TECHNIQUE: Bilateral CC and MLO views. FINDINGS: Scattered fibroglandular densities bilaterally. No suspicious focal mass, asymmetry, calcifications, or architectural distortion. No evidence of malignancy. Incidental intramammary lymph node RIGHT axil joellen tail MM/MM scr BI tomosynthesis [id number] IMPRESSION: DENSITY: There are scattered areas of fibroglandular density. BI-RADS: 2 - Benign. FOLLOW UP: 1 Year Follow-up Recommend return to annual screening mammography.
== END 2024-01-23 13:26 | disposition home or self-care (01) ==
LOC: RAD 13:25
PROVIDERS: PCP Family Medicine; Visit Provider Family Medicine
DX: Z12.31 Encounter for screening mammogram for malignant neoplasm of breast (principal); R92.323 Mammographic fibroglandular density, bilateral breasts
CPT/HCPCS: 77063; 77067

== ENCOUNTER 2024-03-25 14:29 | Oncology outpatient (recurring) (ONCR) | payer OTHER, BC, MEDICAID, SELFPAY ==
[2024-03-25 14:57] VITALS: BP 118/83; TEMP 36.9
[2024-03-25] MEDS: eptinezumab-jjmr 100 MG in sodium chloride 0.9% (100 ml) 100 ML 202 MG IV (15:13)
== END 2024-04-02 23:59 | disposition home or self-care (01) ==
PROVIDERS: PCP Family Medicine; Visit Provider Specialist
DX: G43.711 Chronic migraine without aura, intractable, with status migrainosus (principal); Z79.899 Other long term (current) drug therapy
CPT/HCPCS: 96413; A4222; J3032

== ENCOUNTER → 2024-04-26 10:48 | Outpatient (BNVA) | payer OTHER, BC, MEDICAID, SELFPAY | PROVIDERS: PCP Family Medicine; Visit Provider Specialist | DX: G43.711 Chronic migraine without aura, intractable, with status migrainosus (principal); G62.9 Polyneuropathy, unspecified; M54.81 Occipital neuralgia | CPT/HCPCS: 64405; 99213; J2919; J3490 ==

== ENCOUNTER 2024-06-17 14:17 | Oncology outpatient (recurring) (ONCR) | payer OTHER, BC, MEDICAID, SELFPAY ==
[2024-06-17 14:55] VITALS: BP 149/78; PULSE 89; RESP 17; TEMP 37.1; O2SAT 96
[2024-06-17] MEDS: eptinezumab-jjmr 100 MG in sodium chloride 0.9% (100 ml) 100 ML 202 MG IV (15:12)
[2024-06-17 15:54] VITALS: BP 156/91; PULSE 73; RESP 17; TEMP 36.6; O2SAT 98
== END 2024-06-30 23:59 | disposition home or self-care (01) ==
PROVIDERS: PCP Family Medicine; Visit Provider Specialist
DX: G43.711 Chronic migraine without aura, intractable, with status migrainosus (principal); Z79.899 Other long term (current) drug therapy
CPT/HCPCS: 96413; A4222; J3032

== ENCOUNTER 2024-09-09 13:12 | Oncology outpatient (recurring) (ONCR) | payer OTHER, BC, MEDICAID, SELFPAY ==
[2024-09-09 13:52] VITALS: BP 144/89; PULSE 99; RESP 18; TEMP 36.8; O2SAT 96
[2024-09-09] MEDS: eptinezumab-jjmr 100 MG in sodium chloride 0.9% (100 ml) 100 ML 202 MG IV (14:20)
[2024-09-09 15:09] VITALS: BP 149/94; PULSE 71; RESP 17; TEMP 36.4; O2SAT 98
== END 2024-09-30 23:59 | disposition home or self-care (01) ==
LOC: ONCMED 13:13
PROVIDERS: PCP Family Medicine; Visit Provider Specialist
DX: G43.711 Chronic migraine without aura, intractable, with status migrainosus (principal); Z79.899 Other long term (current) drug therapy
CPT/HCPCS: 96413; A4222; J3032

== ENCOUNTER 2024-10-26 15:17 | Oncology outpatient (recurring) (ONCR) | payer OTHER, BC, MEDICAID, SELFPAY | END 2024-10-31 23:59 | disposition home or self-care (01) | PROVIDERS: PCP Family Medicine; Visit Provider Specialist | DX: G43.711 Chronic migraine without aura, intractable, with status migrainosus (principal); G62.9 Polyneuropathy, unspecified; M54.81 Occipital neuralgia; Z87.891 Personal history of nicotine dependence; D50.9 Iron deficiency anemia, unspecified | CPT/HCPCS: 64405; 99204; 99213; J1010; J3490 ==

== ENCOUNTER 2024-11-02 12:52 | Oncology outpatient (recurring) (ONCR) | payer OTHER, BC, MEDICAID, SELFPAY ==
[2024-11-02] MEDS: ferric derisomaltose 1,000 MG in sodium chloride 0.9% (100 ml) 100 ML 330 MG IV (13:35)
[2024-11-02 13:39] VITALS: BP 143/98; PULSE 84; TEMP 36.3; O2SAT 97
== END 2024-11-30 23:59 | disposition home or self-care (01) ==
PROVIDERS: PCP Family Medicine; Visit Provider Specialist
DX: D50.9 Iron deficiency anemia, unspecified (principal); Z79.899 Other long term (current) drug therapy
CPT/HCPCS: 96365; J1437

== ENCOUNTER → 2024-11-22 10:27 | Outpatient (BNVA) | payer OTHER, BC, MEDICAID, SELFPAY | PROVIDERS: PCP Family Medicine; Visit Provider Anesthesiology Pain Medicine | DX: M54.2 Cervicalgia (principal); M54.9 Dorsalgia, unspecified | CPT/HCPCS: 99213 ==

== ENCOUNTER 2024-12-02 13:58 | Oncology outpatient (recurring) (ONCR) | payer OTHER, BC, MEDICAID, SELFPAY ==
[2024-12-02] MEDS: eptinezumab-jjmr 100 MG in sodium chloride 0.9% (100 ml) 100 ML 202 MG IV (14:50)
[2024-12-02 15:27] VITALS: BP 163/102; PULSE 70; RESP 16; TEMP 37.1; O2SAT 91
== END 2024-12-31 23:59 | disposition home or self-care (01) ==
PROVIDERS: PCP Family Medicine; Visit Provider Specialist
DX: G43.711 Chronic migraine without aura, intractable, with status migrainosus (principal); Z79.899 Other long term (current) drug therapy
CPT/HCPCS: 96413; A4222; J3032

== ENCOUNTER → 2024-12-27 09:30 | Outpatient (BNVA) | payer OTHER, BC, MEDICAID, SELFPAY | PROVIDERS: PCP Family Medicine; Visit Provider Anesthesiology Pain Medicine | DX: M54.81 Occipital neuralgia (principal); M54.2 Cervicalgia; M54.9 Dorsalgia, unspecified | CPT/HCPCS: 64405; 99214; J1010; J3490 ==

== ENCOUNTER 2025-01-25 12:00 | Oncology outpatient (recurring) (ONCR) | payer OTHER, BC, MEDICAID, SELFPAY ==
[2025-01-25 12:33] LABS: Hematocrit 38.6 % (36-47); Hemoglobin 12.20 g/dL (11.27-16.99); Mean Corpuscular HGB Conc 31.6 g/dL (30-55); Mean Corpuscular Hemoglobin 26.1 pg (27-33); Mean Corpuscular Volume 82.5 fl (85-98); Nucleated Red Blood Cells % 0 %; Platelet Count 316 10^3/cmm (157-399); Red Blood Count 4.68 10^6/uL (3.85-5.65); White Blood Count 7.65 10^3/uL (3.29-11.43)
[2025-01-25 12:56] LABS: Alanine Aminotransferase 12 U/L (0-33); Albumin Level 4.3 g/dL (3.5-5.2); Alkaline Phosphatase 108 U/L (35-105); Anion Gap 14.4 (5-19); Aspartate Amino Transferase 16 U/L (0-32); Blood Urea Nitrogen 8 mg/dL (8-23); Calcium 9.3 mg/dL (8.5-10.5); Carbon Dioxide 24 mmol/L (22-29); Chloride 107 mmol/L (98-107); Globulin 2.7 g/dL (1.3-4.6); Glucose 94 mg/dL (65-115); Osmolality Calculated 290 mOsm/kg (285-295); Potassium 4.4 mmol/L (3.5-5.1); Sodium 141 mmol/L (136-145); Total Protein 7.0 g/dL (6.6-8.7)
== END 2025-01-30 23:59 | disposition home or self-care (01) ==
PROVIDERS: PCP Family Medicine; Visit Provider Internal Medicine Medical Oncology
DX: D50.9 Iron deficiency anemia, unspecified (principal); Z79.899 Other long term (current) drug therapy; Z87.891 Personal history of nicotine dependence
CPT/HCPCS: 36415; 80053; 85025; 99213

== ENCOUNTER 2025-01-28 10:41 | Outpatient (CLI) | payer OTHER, BC, MEDICAID, SELFPAY ==
--- NOTE | 2025-01-28 10:45 | MM_ITS ---
WS: [id number] BILATERAL 3D TOMOSYNTHESIS DIGITAL SCREENING MAMMOGRAPHY WITH CAD CLINICAL INFORMATION: ANNUAL SCREEN HISTORY: Screening mammogram. No current complaints. COMPARISON: 2023 TECHNIQUE: Bilateral CC and MLO views. FINDINGS: Scattered fibroglandular densities bilaterally. No suspicious focal mass, asymmetry, calcifications, or architectural distortion. No evidence of malignancy. MM/MM scr BI tomosynthesis [id number] IMPRESSION: DENSITY: There are scattered areas of fibroglandular density. BI-RADS: 1 - Negative. FOLLOW UP: 1 Year Follow-up Recommend return to annual screening mammography.
== END 2025-01-28 10:42 | disposition home or self-care (01) ==
LOC: RAD 10:41
PROVIDERS: PCP Family Medicine; Visit Provider Family Medicine
DX: Z12.31 Encounter for screening mammogram for malignant neoplasm of breast (principal); R92.323 Mammographic fibroglandular density, bilateral breasts
CPT/HCPCS: 77063; 77067

== ENCOUNTER 2025-03-02 13:57 | Oncology outpatient (recurring) (ONCR) | payer OTHER, BC, MEDICAID, SELFPAY ==
[2025-03-02 14:38] VITALS: BP 122/74; PULSE 67; TEMP 37.2
[2025-03-02] MEDS: eptinezumab-jjmr 100 MG in sodium chloride 0.9% (100 ml) 100 ML 202 MG IV (14:53)
[2025-03-02 16:00] VITALS: BP 128/74; PULSE 68; RESP 16; TEMP 36.8
== END 2025-03-02 23:59 | disposition home or self-care (01) ==
PROVIDERS: PCP Family Medicine; Visit Provider Internal Medicine Medical Oncology
DX: G43.711 Chronic migraine without aura, intractable, with status migrainosus (principal); Z79.899 Other long term (current) drug therapy
CPT/HCPCS: 96365; A4222; J3032